=== PATIENT | female | born 1950 | race Caucasian/White ===

== ENCOUNTER 2022-11-20 15:40 | Emergency (ER) | payer MEDICARE, SELFPAY ==
[2022-11-20] MEDS: ASPIRIN 81 MG CHEWABLE TABLET 324 MG PO (15:40)
--- NOTE | 2022-11-20 15:47 | ED.CHESTPAIN ---
HPI - Chest Pain General Chief Complaint: Chest Pain Stated Complaint: Chest Pain/Shortness of Breath Source: patient and RN notes reviewed History of Present Illness HPI narrative: 72 yo female presents to urgent care with complaints of chest pain, back pain, and SOB. Pt states she thought she was having acid reflux initially but the pain worsened and is now in her left upper chest. Pt reports stabbing back pain and shortness of breath. Patient states this started prior to arrival. Patient denies any recent illness including fevers, vomiting, diarrhea, dizziness, congestion, or abdominal pain. Related Data Home Medications Medication Instructions Recorded Confirmed multivit with minerals-iron 18 1 tablet PO DAILY 07/29/19 11/20/22 mg-folic ac 400 mcg-vit K 25 mcg tablet (Adults Multivitamin) omega 1-ykp-whj-fish oil 1,000 mg 1 cap PO DAILY 07/29/19 11/20/22 (120 mg-180 mg) capsule (Fish Oil) docusate sodium 100 mg capsule 100 mg PO TID 06/17/22 11/20/22 (Stool Softener) magnesium oxide 400 mg PO DAILY 06/17/22 11/20/22 riboflavin (vitamin B2) 400 mg 400 mg PO DAILY 06/17/22 11/20/22 tablet Allergies Allergy/AdvReac Type Severity Reaction Status Date / Time latex AdvReac Unknown Unknown Unverified 11/20/22 15:50 Penicillins AdvReac Unknown Swelling Unverified 11/20/22 15:50 vicoden AdvReac Unknown Itching Uncoded 11/20/22 15:50 Review of Systems Review of Systems: Pertinent positives and pertinent negatives per HPI. [facility] Past Medical History Medical History (Updated 11/20/22 @ 16:13 by Qing Munoz APRN) Chronic cardiac arrhythmia Diabetes Hyperlipidemia Hypothyroid Surgical History Surgical History (Updated 06/13/22 @ 07:57 by Royal Kumar MD) Hx of cholecystectomy (2002) Hx of hysterectomy (02/2017) Social History Social History (Updated 06/19/22 @ 10:49 by Royal Kumar MD) Years smoked: 30 Smoking status: Former smoker Smoking end date: 08/17/11 Alcohol intake: current Comments At the time of my signature, I reviewed and agree with the nursing past medical, surgical, social, and family history. There is no relevant family history pertinent to the patient complaint. Exam Narrative: GENERAL: This is a well-nourished, well-developed patient, in no apparent distress. HEAD: normocephalic, atraumatic. EYES: Sclera clear/white. Vision is grossly intact. EARS: External ears normal, auditory canals clear and without drainage. Hearing grossly intact. NOSE: External nose normal with no obvious nasal discharge, nares without redness, no rhinorrhea. THROAT: Mucous membranes moist, posterior pharynx clear. NECK: Neck supple, non-tender without lymphadenopathy, masses or thyromegaly. CARDIOVASCULAR: Regular rate and rhythm without murmurs, gallops, or rubs. RESPIRATORY: Clear to auscultation. Breath sounds equal bilaterally. No wheezes, rales, or rhonchi. GASTROINTESTINAL: Abdomen soft, non-tender, nondistended. Bowel sounds are active. No hepato-splenomegaly, or palpable masses. No guarding. SKIN: warm, intact with no suspicious lesions or rash, good texture and turgor. NEURO: awake, alert, and oriented to person, place and time. There were no obvious focal neurologic abnormalities. Course Course Level of Care: Express Care Visit Vital Signs Vital signs: Vital Signs Temperature 98.5 F 11/20/22 15:51 Pulse Rate 94 11/20/22 15:51 Respiratory Rate 18 11/20/22 15:51 Blood Pressure 154/80 H 11/20/22 15:51 Pulse Oximetry 98 11/20/22 15:51 Oxygen Delivery Room Air 11/20/22 15:51 Temperature 98.5 F 11/20/22 15:56 Pulse Rate 94 11/20/22 15:56 Respiratory Rate 18 11/20/22 15:56 Blood Pressure 154/80 H 11/20/22 15:56 Pulse Oximetry 98 11/20/22 15:56 Oxygen Delivery Room Air 11/20/22 15:56 Reviewed MDM - Chest Pain MDM Narrative Medical decision making narrative: Patient was made aware reasons for transfer to ED,
[2022-11-20 15:51] VITALS: BP 154/80; PULSE 94; RESP 18; TEMP 36.9; O2SAT 98
[2022-11-20 15:56] VITALS: BP 154/80; PULSE 94; RESP 18; TEMP 36.9; O2SAT 98
--- NOTE | 2022-11-20 18:02 | ECG_ITS ---
Measurements Intervals [place] Rate: 91 P: 22 NC: 160 QRS: 51 QRSD: 104 T: 53 QT: 348 QTc: 430 Interpretive Statements SINUS RHYTHM NONSPECIFIC ST & T-WAVE ABNORMALITY ABNORMAL ECG INTERPRETATION BASED ON A DEFAULT AGE OF 40 YEARS NO PREVIOUS ECG AVAILABLE FOR COMPARISON Electronically Signed On 11-21-2022 7:41:47 CDT by Stephane Robb M.D.
== END 2022-11-20 16:00 | disposition left against medical advice (07) ==
PROVIDERS: Emergency Provider Nurse Practitioner Family
DX: R07.9 Chest pain, unspecified (principal); R94.31 Abnormal electrocardiogram [ECG] [EKG]; Z87.891 Personal history of nicotine dependence; E11.9 Type 2 diabetes mellitus without complications; E78.5 Hyperlipidemia, unspecified; E03.9 Hypothyroidism, unspecified; I49.9 Cardiac arrhythmia, unspecified
CPT/HCPCS: 93005; 99213; A9270; G0463

== ENCOUNTER 2024-07-26 00:31 | Day surgery (SDC) | payer MEDICARE, SELFPAY ==
[2024-07-05 13:57] VITALS: BMI 25.9
[2024-07-26 06:37] LABS: Glucose Point of Care 110 mg/dl (65-105)
--- NOTE | 2024-07-26 07:18 | P.PNAN_ITS ---
Anes - Initial Pre Proc Eval Procedure: Operation Date: 07/26/24 07:30 Proposed Procedures p Screening Colonoscopy - Cory Marie DO Date/Time: 07/26/24 07:18 Surgeon: Cory Marie DO Pre Op Diagnosis: Screening for malignant neoplasm of colon Patient Data Age: 74 Gender: F Height: 1.7 m Weight: 75 kg Allergies Allergy/AdvReac Type Severity Reaction Status Date / Time latex AdvReac Unknown Unknown Verified 07/26/24 07:07 Penicillins AdvReac Unknown Swelling Verified 07/26/24 07:07 vicoden AdvReac Unknown Itching Uncoded 07/26/24 07:07 Home Medications ?Medication ?Instructions ?Recorded ?Confirmed ?Type multivit with minerals-iron 18 1 tablet PO DAILY 07/29/19 07/26/24 History mg-folic ac 400 mcg-vit K 25 mcg tablet (Adults Multivitamin) omega 4-atp-dni-fish oil 1,000 mg 1 cap PO DAILY 07/29/19 07/26/24 History (120 mg-180 mg) capsule (Fish Oil) atorvastatin 20 mg tablet 20 mg PO DAILY #90 tabs 06/29/23 07/26/24 Rx digoxin 125 mcg (0.125 mg) tablet 0.375 mg (3 x 125 mcg (0.125 mg)) 06/29/23 07/26/24 Rx PO DAILY #270 tabs furosemide 20 mg tablet 20 mg PO DAILY PRN edema #90 tabs 06/29/23 07/26/24 Rx levothyroxine 100 mcg tablet 100 mcg PO DAILY #90 tabs 06/29/23 07/26/24 Rx metformin 500 mg tablet,extended 500 mg PO DAILY #90 tabs 06/29/23 07/26/24 Rx release 24 hr pantoprazole 40 mg tablet,delayed 40 mg PO DAILY #90 tabs 06/29/23 07/26/24 Rx release linaclotide 145 mcg capsule 145 mcg PO DAILY #30 caps 01/01/24 07/26/24 Rx (Linzess) nortriptyline 25 mg capsule 25 mg PO QHS #90 caps 05/29/24 07/26/24 Rx glucosamine-chondroitin 250 mg-200 2 tablet PO TID 07/04/24 07/26/24 History mg tablet (Osteo Bi-Flex) magnesium gluconate 30 mg (550 mg) 30 mg PO DAILY 07/04/24 07/26/24 History tablet bupropion HCl 150 mg 24 hr tablet, 150 mg PO QAM #90 tabs 07/06/24 07/26/24 Rx extended release Laboratory Tests 07/26/24 06:35 POC Capillary Glucose 110 H mg/dl (65-105) Patient hx anesthesia problems: none Family hx anesthesia problems: none Results Review: All pre-operative results and documents have been reviewed as part of the pre- operative evaluation. PMFSH Past Medical History Medical History Chronic cardiac arrhythmia Hypothyroid Diabetes Hyperlipidemia Surgical History Surgical History Hx of cholecystectomy (2002) Hx of hysterectomy (02/2017) Social History Social History Smoking packs per day: 1 Smoking cigarettes per day: 20.0 Years smoked: 40 Smoking pack-years: 40.00 Smoking status: Former smoker Tobacco type: cigarettes Smoking end date: 08/17/11 Alcohol intake: never Substance use: current Substance use type: does not use Do You Feel Safe in your Home?: Yes Lack of Transportation: No Lack of Food: Never True Current Housing: I Have Housing Concerned About Future Housing: No Difficulty Paying Gas/Electric Bills: No Difficulty Paying for Meds: No Currently Unemployed: No Education: Master's Degree or Higher Difficulty w/ Childcare or Family Care: No Living arrangements: alone Spiritual care concerns: No Anes - Eval Final PreProcedure Day of Procedure 07/26/24 07:18 Patient weight: normal Heart: regular rate and rhythm Lungs: clear to auscultation Airway: Mallampati scale class II Neurological: alert and oriented Last oral intake: >/= 8 hours ASA classification: III Emergent: no Anesthetic plan: proceed Anesthesia type and monitoring: general GIVS and standard monitoring Results Review: All pre-operative results and documents have been reviewed as part of the pre- operative evaluation. Informed Consent: The patient's anesthetic plan and its attendant risks and benefits were discussed with the patient/family/POA. Questions were solicited and answers provided to the satisfaction of the patient/family/POA.
[2024-07-26 07:19] VITALS: BP 139/79; PULSE 84; RESP 18; TEMP 36.2; O2SAT 98
[2024-07-26] MEDS: LACTATED RINGERS 1,000 ML 150 ML IV CONT (07:24)
--- NOTE | 2024-07-26 07:30 | PM.IMHP ---
H&P: HPI History of Present Illness Date/Time: 07/26/24 07:30 Chief Complaint: Screening for colorectal cancer Narrative: this is a 74-year-old woman who presents for colonoscopy. Her last colonoscopy was 5 years ago. She denies hematochezia or melena. She denies family history of colon cancer. Review of Systems Review of Systems: All systems reviewed & are unremarkable except as noted in HPI and below Constitutional: Constitutional: Denies chills, Denies fever(s), Denies headache(s) and Denies weight loss Eyes: Eyes: Denies change in vision ENT: Denies dizziness, Denies headache(s), Denies neck mass and Denies throat swelling Cardiovascular: Cardiovascular: Denies chest pain, Denies lightheadedness and Denies dyspnea Respiratory: Respiratory: Denies cough, Denies dyspnea and Denies wheezing Gastrointestinal: Gastrointestinal: Denies abdominal pain, Denies change in bowel habits, Denies nausea and Denies vomiting Genitourinary: Genitourinary: Denies hematuria and Denies dysuria Musculoskeletal: Musculoskeletal: Reports as per HPI Integumentary/Breasts: Skin/Breast: Reports as per HPI Neurologic: Denies dizziness and Denies headache(s) Allergic/Immunologic: Allergic/Immunologic: Denies throat swelling and Denies wheezing PMF Past Medical History Medical History Chronic cardiac arrhythmia Hypothyroid Diabetes Hyperlipidemia Surgical History Surgical History Hx of cholecystectomy (2002) Hx of hysterectomy (02/2017) Social History Social History Smoking packs per day: 1 Smoking cigarettes per day: 20.0 Years smoked: 40 Smoking pack-years: 40.00 Smoking status: Former smoker Tobacco type: cigarettes Smoking end date: 08/17/11 Alcohol intake: never Substance use: current Substance use type: does not use Do You Feel Safe in your Home?: Yes Lack of Transportation: No Lack of Food: Never True Current Housing: I Have Housing Concerned About Future Housing: No Difficulty Paying Gas/Electric Bills: No Difficulty Paying for Meds: No Currently Unemployed: No Education: Master's Degree or Higher Difficulty w/ Childcare or Family Care: No Living arrangements: alone Spiritual care concerns: No Meds Home Medications and Allergies Home Medications ?Medication ?Instructions ?Recorded ?Confirmed ?Type multivit with minerals-iron 18 1 tablet PO DAILY 07/29/19 07/26/24 History mg-folic ac 400 mcg-vit K 25 mcg tablet (Adults Multivitamin) omega 4-zdz-dsd-fish oil 1,000 mg 1 cap PO DAILY 07/29/19 07/26/24 History (120 mg-180 mg) capsule (Fish Oil) atorvastatin 20 mg tablet 20 mg PO DAILY #90 tabs 06/29/23 07/26/24 Rx digoxin 125 mcg (0.125 mg) tablet 0.375 mg (3 x 125 mcg (0.125 mg)) 06/29/23 07/26/24 Rx PO DAILY #270 tabs furosemide 20 mg tablet 20 mg PO DAILY PRN edema #90 tabs 06/29/23 07/26/24 Rx levothyroxine 100 mcg tablet 100 mcg PO DAILY #90 tabs 06/29/23 07/26/24 Rx metformin 500 mg tablet,extended 500 mg PO DAILY #90 tabs 06/29/23 07/26/24 Rx release 24 hr pantoprazole 40 mg tablet,delayed 40 mg PO DAILY #90 tabs 06/29/23 07/26/24 Rx release linaclotide 145 mcg capsule 145 mcg PO DAILY #30 caps 01/01/24 07/26/24 Rx (Linzess) nortriptyline 25 mg capsule 25 mg PO QHS #90 caps 05/29/24 07/26/24 Rx glucosamine-chondroitin 250 mg-200 2 tablet PO TID 07/04/24 07/26/24 History mg tablet (Osteo Bi-Flex) magnesium gluconate 30 mg (550 mg) 30 mg PO DAILY 07/04/24 07/26/24 History tablet bupropion HCl 150 mg 24 hr tablet, 150 mg PO QAM #90 tabs 07/06/24 07/26/24 Rx extended release Allergies Allergy/AdvReac Type Severity Reaction Status Date / Time latex AdvReac Unknown Unknown Verified 07/26/24 07:07 Penicillins AdvReac Unknown Swelling Verified 07/26/24 07:07 vicoden AdvReac Unknown Itching Uncoded 07/26/24 07:07 Vital Signs Vital Signs - 24 hr 07/26/24 07:19 Temperature 97.1 F L Pulse Rate 84 Respiratory Rate 18 Blood Pressure 139/79 Pulse Oximetry 98 Oxygen Delivery Room Air Exam Const: General: no acute distress and alert Orientation/consciousness: patient oriented x3 HENMT: Head: normocephalic and atraumatic Ears: hearing grossly normal bilaterally Face/Nose/Sinus: Normal nares present Mouth: Yes Normal oral and palatal mucosa present Eyes: Periorbital: periorbital findings normal Sclera: sclerae normal EOM: EOMs intact bilaterally Neck: Neck: normal visual inspection, no lymphadenopathy and trachea midline Chest: Chest palpation & inspection: normal inspection of the chest Resp: Effort & Inspection: normal respiratory effort Auscultation: clear to auscultation bilaterally Cardio: Jugular venous distension: no JVD Rate: regular rate Rhythm: regular rhythm Heart sounds: S1 normal heart sound present and S2 normal heart sound present Peripheral pulses: Peripheral pulses 2+ throughout GI: Inspection: normal to inspection GI Palp: Yes Soft to palpation, No Tenderness to palpation present (GI), No Guarding due to palpation present (GI) and No Rebound tenderness present Percussion: Yes normal to percussion Auscultation: normal bowel sounds : General: Yes no CVA tenderness Back/Spine/Pelvis: Back: no CVA tenderness Neuro: General: patient oriented x3, no focal motor deficits and CN's II-XI intact bilaterally Cognition (Neuro): normal cognition Speech: normal speech Motor exam (neuro): 5/5 motor strength present throughout Extrem: General: capillary refill normal and no clubbing, cyanosis or edema Assessment and Plan Assessment and plan (1) Screening for colorectal cancer: Code(s): Z12.11 - Encounter for screening for malignant neoplasm of colon; Z12.12 - Encounter for screening for malignant neoplasm of rectum Status: Acute Assessment and Plan: I have recommended colonoscopy. I have discussed the procedure, risks, benefits, and alternatives. Questions were answered. Patient is agreeable to proceed.
[2024-07-26 08:03] VITALS: BP 99/58; PULSE 68; RESP 22; O2SAT 97
[2024-07-26 08:13] VITALS: BP 114/64; PULSE 69; RESP 13; O2SAT 98
[2024-07-26 08:23] VITALS: BP 126/75; PULSE 73; RESP 18; O2SAT 99
== END 2024-07-26 08:41 | disposition home or self-care (01) ==
PROVIDERS: PCP Family Medicine Adolescent Medicine; Visit Provider Surgery
PROC: 0DJD8ZZ Inspection of Lower Intestinal Tract, Via Natural or Artificial Opening Endoscopic (ICD-10-PCS; CPT 45378; principal; 2024-07-26 07:30)
DX: Z12.11 Encounter for screening for malignant neoplasm of colon (principal); D12.8 Benign neoplasm of rectum; E03.9 Hypothyroidism, unspecified; E11.9 Type 2 diabetes mellitus without complications; E78.5 Hyperlipidemia, unspecified; I49.8 Other specified cardiac arrhythmias; Z79.84 Long term (current) use of oral hypoglycemic drugs; Z98.890 Other specified postprocedural states; Z90.49 Acquired absence of other specified parts of digestive tract; Z87.891 Personal history of nicotine dependence; Z80.0 Family history of malignant neoplasm of digestive organs
CPT/HCPCS: 45380; 82948; 88305; J2003; J2704; J7120

== ENCOUNTER 2024-11-03 09:45 | Outpatient (CLI) | payer MEDICARE, SELFPAY ==
--- NOTE | ~2024-11-03 | XR_ITS ---
Right Shoulder Technique: AP and scapular Y views were obtained. Clinical History: Enthesopathy Findings: No fracture or dislocation is seen. Osseous alignment is anatomic. The glenohumeral and acr omioclavicular joint spaces are preserved. Soft tissues are unremarkable. Impression: Unremarkable right shoulder radiographs. Reviewed, dictated and finalized at location . Impression: Unremarkable right shoulder radiographs.
--- NOTE | ~2024-11-03 | XR_ITS ---
Left Shoulder Technique: AP and scapular Y views were obtained. Clinical History: Arthritis Findings: No fracture or dislocation is seen. Osseous alignment is anatomic. The glenohumeral and acr omioclavicular joint spaces are preserved. Soft tissues are unremarkable. Impression: Unremarkable left shoulder radiographs. Reviewed, dictated and finalized at [facility]. Impression: Unremarkable left shoulder radiographs.
== END 2024-11-03 09:46 | disposition home or self-care (01) ==
LOC: MICIMG 09:47
PROVIDERS: PCP Family Medicine Adolescent Medicine; Visit Provider Family Medicine Adolescent Medicine
DX: M19.012 Primary osteoarthritis, left shoulder (principal); M77.8 Other enthesopathies, not elsewhere classified
CPT/HCPCS: 73030

== ENCOUNTER 2025-03-03 14:58 | Emergency (ER) | payer MEDICARE, SELFPAY ==
--- NOTE | 2025-03-03 15:01 | ED_ITS ---
HPI - URI/Sore Throat General Chief Complaint: Upper Respiratory Infection Stated Complaint: throat/aches/head congestion Time Seen by Provider: 03/03/25 15:21 Source: patient and RN notes reviewed Mode of arrival: ambulatory Limitations: no limitations History of Present Illness HPI Narrative: 74-year-old female presents with concern for sore throat, cough, sinus congestion and pressure, hoarseness. Reports symptoms started last night. She arrived home today from an [facility] cruise. She has not taken any medication for her symptoms. She has not taken her temperature. MD elicited complaint: cough and nasal congestion Related Data Home Medications ?Medication ?Instructions ?Recorded ?Confirmed ?Last Taken ?Type multivit with minerals-iron 18 1 tablet PO DAILY 07/29/19 11/03/24 07/25/24 History mg-folic ac 400 mcg-vit K 25 mcg tablet (Adults Multivitamin) omega 5-lpq-vse-fish oil 1,000 mg 1 cap PO DAILY 07/29/19 11/03/24 07/25/24 History (120 mg-180 mg) capsule (Fish Oil) glucosamine-chondroitin 250 mg-200 2 tablet PO TID 07/04/24 11/03/24 07/25/24 History mg tablet (Osteo Bi-Flex) magnesium gluconate 30 mg (550 mg) 30 mg PO DAILY 07/04/24 11/03/24 07/25/24 History tablet hydrocortisone sod succ (PF) 1,000 mg 03/03/25 Unknown History mg/8 mL solution for injection (Solu-Cortef Act-O-Vial (PF)) Allergies Allergy/AdvReac Type Severity Reaction Status Date / Time latex AdvReac Unknown Unknown Verified 03/03/25 15:12 Penicillins AdvReac Unknown Swelling Verified 03/03/25 15:12 vicoden AdvReac Unknown Itching Uncoded 03/03/25 15:12 Review of Systems Review of Systems: CONSTITUTIONAL: Reports malaise EYES: Denies visual changes, redness, or discharge. ENT: Reports rhinorrhea, congestion, sore throat. CARDIOVASCULAR: Denies chest pain, palpitations, or edema. RESPIRATORY: Reports cough. Denies dyspnea. GASTROINTESTINAL: Denies abdominal pain, nausea, vomiting, diarrhea SKIN: Denies rash or itching. MUSCULOSKELETAL: Denies myalgia. NEUROLOGIC: Reports headache. All systems reviewed & are unremarkable except as noted in HPI and below PMFSH Past Medical History Medical History Chronic cardiac arrhythmia Hypothyroid Diabetes Hyperlipidemia Surgical History Surgical History Hx of cholecystectomy (2002) Hx of hysterectomy (02/2017) Social History Social History Smoking packs per day: 1 Smoking cigarettes per day: 20.0 Years smoked: 40 Smoking pack-years: 40.00 Smoking status: Former smoker Tobacco type: cigarettes Smoking end date: 08/17/11 Alcohol intake: never Substance use: current Substance use type: does not use Do You Feel Safe in your Home?: Yes Lack of Transportation: No Lack of Food: Never True Current Housing: I Have Housing Concerned About Future Housing: No Difficulty Paying Gas/Electric Bills: No Difficulty Paying for Meds: No Currently Unemployed: No Education: Master's Degree or Higher Difficulty w/ Childcare or Family Care: No Living arrangements: alone Spiritual care concerns: No Comments At time of signature, agree with nursing past medical, surgical, social and family history. There is no relevant family history pertinent to the presenting complaint Exam Narrative: GENERAL: Nontoxic-appearing, well-nourished, and in no acute distress. HEAD: Normocephalic EYES: PERRLA, conjunctivae clear ENT: Nares clear. Mucous membranes moist. TM pearly ramirez with sharp light reflex bilaterally; no tragal tenderness. Oropharynx not erythematous without lesions. Tonsils not enlarged and without exudate, no drooling, no hoarseness, no trismus, uvula midline. NECK: Supple. No lymphadenopathy CHEST: Clear to auscultation, breath sounds equal. No wheezing, rhonchi, rales, or stridor. No respiratory distress, speaks in full sentences. HEART: Regular rate and rhythm. No murmur heard. SKIN: Warm, dry, no rash. NEURO: Alert and oriented x3. PSYCH: Normal mood and affect Course Course Emergency Course: Patient is aware of diagnosis, understands and agrees to treatment plan. Anticipatory guidance given. Patient agrees to follow-up as directed and is aware of reasons to seek care at the emergency department. Portions of this record may have been created with voice recognition software Level of Care: Express Care Visit Vital Signs Vital signs: Reviewed. MDM - URI/Sore Throat MDM Narrative Medical decision making narrative: Differential diagnosis considered: Macias virus, strep pharyngitis, allergic rhinitis, upper respiratory tract infection, sinusitis, rhinosinusitis, nasopharyngitis. viral pharyngitis, otitis media, otitis externa, pneumonia, br onchitis, viral cough syndrome, viral syndrome, and influenza. Exam findings show no acute concerns or changes; patient is non-toxic appearing and is in no distress. Patient is appropriate for outpatient treatment and follow-up. Lab Data Attestation: I reviewed the patient's lab results. Critical Care Time Critical Care Time Critical Care Time: No Discharge Plan Discharge Clinical Impression: COVID Patient Disposition: Home Condition: Stable Instructions: How to Recover from COVID-19 at Home (ED) Additional Instructions: Your rapid COVID test is positive. COVID is a virus, antibiotics are not effective against viruses. Your body has to kill viruses. ? Stay home when you are sick, except to get medical care. ? Stay home until your symptoms are resolving and you haven't had a fever for 24 hours. ? If you are self isolating at home where others live, use a separate room and bathroom for sick household members (if possible). Clean any shared rooms as ne eded, to avoid transmitting the virus. ? Wash your hands often with soap and water for at least 20 seconds, especially after blowing your nose, coughing, or sneezing; going to the bathroom; and befor e eating or preparing food. ? If soap and water are not available, use an alcohol-based hand direct marketing intern with at least 60% alcohol. ? Have a supply of clean, disposable face masks. Everyone, no matter their COVID diagnosis, should wear face masks while in the home. - Over the counter medications such as Tylenol every 4 hours, ibuprofen every 6 hours (you can alternate these for maximum effect), Mucinex DM for cough, and psuedoephedrine (you must ask the pharmacist for this) can help relieve symptoms while your body fights off the virus. Watch for symptoms and learn when to seek emergency medical attention. If someone is showing any of these signs, seek emergency medical care immediately: ? Trouble breathing ? Persistent chest pain/pressure ? Confusion ? Inability to wake or stay awake ? Bluish lips or face Call 911 or call ahead to your local emergency room: Notify the utility operator that you are seeking care for someone who has or may have COVID Patient Language: Dominican Prescriptions: New Paxlovid 300 mg (150 mg x 2)-100 mg tablet See Rx Instructions .ROUTE .COMPLEX Qty: 30 0RF Rx Instructions: take TWO 150 mg tablets of nirmatrelvir with ONE 100 mg tablet of ritonavir twice daily for 5 days pseudoephedrine HCl [12 Hour Decongestant] 120 mg tablet extended release 120 mg PO Q12H PRN (Reason: nasal congestion) Qty: 20 0RF Held trazodone 100 mg tablet 100 mg PO QHS Qty: 30 5RF Hold Instructions: Resume on 03/09/25. Do not take while taking paxlovid atorvastatin 20 mg tablet 20 mg PO DAILY Qty: 90 2RF Hold Instructions: Resume on 03/09/25. Do not take while taking Paxlovid No Action Solu-Cortef Act-O-Vial (PF) 1,000 mg/8 mL recon soln glucosamine-chondroitin [Osteo Bi-Flex] 250-200 mg tablet 2 tablet PO TID Rx Instructions: give after food/meal magnesium gluconate 30 mg (550 mg) tablet 30 mg PO DAILY furosemide 20 mg tablet 20 mg PO DAILY PRN (Reason: edema) Qty: 90 3RF omega 1-eam-lsu-fish oil [Fish Oil] 1,000 mg (120 mg-180 mg) Capsule 1 cap PO DAILY Adults Multivitamin 18 mg iron-400 mcg-25 mcg Tablet 1 tablet PO DAILY nortriptyline 25 mg capsule 25 mg PO QHS Qty: 90 3RF bupropion HCl 150 mg tablet extended release 24 hr 150 mg PO QAM Qty: 90 3RF digoxin 125 mcg (0.125 mg) tablet 0.375 mg PO DAILY Qty: 270 2RF pantoprazole 40 mg tablet,delayed release (DR/EC) 40 mg PO DAILY Qty: 90 2RF Linzess 145 mcg capsule 145 mcg PO DAILY Qty: 30 7RF levothyroxine 100 mcg tablet See Rx Instructions .ROUTE .COMPLEX Qty: 90 3RF Dose Instruction: Take 1 tablet by mouth once daily Rx Instructions: Take 1 tablet by mouth once daily metformin 500 mg tablet extended release 24 hr See Rx Instructions .ROUTE .COMPLEX Qty: 90 2RF Dose Instruction: Take 1 tablet by mouth once daily Rx Instructions: Take 1 tablet by mouth once daily Follow-up/Referrals: Royal Kumar MD [Primary Care Provider] - Time of Disposition: 15:30
--- OUTSIDE RECORDS SUMMARY | 2025-03-03 15:02 | XMS_ITS ---
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 Stephane Navarro Unavailable [phone] Gina Santiago Unavailable [phone] Allergies Allergen (clinical drug ingredient) Drug/Non Drug Allergy documented on EMR Reaction Allergy Type Onset Date Status Penicillin G Benzathine other reaction Drug Allergy Active REASON FOR VISIT Botox BB Only Medications Medication SIG (Take, Route, Frequency, Duration) Notes Start Date End Date Status Levothyroxine Sodium 100 MCG (0.1 MG) 1 CAP(S) ORALLY ONCE A DAY *Please review and pick correct strength-formulati on from AdRollan options. If intended option is not shown, discontinue and re-order from Quick Search* Active Nortriptyline HCl 25 MG 1 cap(s) orally 3 times a day Active metFORMIN HCl ER 500 MG 1 tab(s) orally once a day Active Atorvastatin Calcium 20 MG 1 tab(s) orally once a day Active Digoxin 62.5 MCG (0.0625 MG) 1 TAB(S) ORALLY ONCE A DAY *Please review and pick correct strength-formulati on from Medispan options. If intended option is not shown, discontinue and re-order from Quick Search* Active Pantoprazole Sodium 40 MG 1 tab(s) orally once a day Active Clindamycin HCl 300 MG 1 cap(s) orally every 6 hours Active Prochlorperazine Maleate 10 MG 1 tab(s) orally 3 times a day Active Furosemide 20 MG 1 tab(s) orally once a day Active Wellbutrin SR 150 MG 1 tab(s) orally 2 times a day Active NORTRIPTYLINE 25 mg 1 cap(s) orally 3 times a day Active METFORMIN 500 mg 1 tab(s) orally once a day Active ATORVASTATIN 20 mg 1 tab(s) orally once a day Active DIGOXIN 62.5 mcg (0.0625 mg) 1 tab(s) orally once a day .375mg Active Linzess 145 MCG 1 cap(s) orally once a day Active LEVOTHYROXINE 100 mcg (0.1 mg) 1 cap(s) orally once a day Active CLINDAMYCIN 300 mg 1 cap(s) orally every 6 hours Active PROCHLORPERAZINE 10 mg 1 tab(s) orally 3 times a day As needed Active FUROSEMIDE 20 mg 1 tab(s) orally once a day Active WELLBUTRIN SR 150 mg/12 hours 1 tab(s) orally 2 times a day Active PANTOPRAZOLE 40 mg 1 tab(s) orally once a day Active LINZESS 145 mcg 1 cap(s) orally once a day Active Social History Tobacco Use: Social History Observation Description Date Details (start date - stop date) Former Smoker NA - NA Smoking Smart Form: Question Answer Notes Are you a: former smoker Additional Findings:Tobacco Non-User Ex-light ci garette smoker (1-9/day) Problems Problem Type SNOMED Code ICD Code Onset Dates Problem Status W/U Status Risk Notes Problem Migraine with aura (2553008) Migraine with aura, not intractable, without status migrainosus (G43.109) Active confirmed Problem Chronic migraine without aura, non-refractor y (disorder) (123207407206 100) Migraine without aura, not intractable, without status migrainosus (G43.009) Active confirmed Encounters Encounter Location Date Provider Diagnosis [facility] [address] [address] 09/01/2024 Gina Santiago Chronic migraine without aura, not intractable, without status migrainosus G43.709 Assessments Encounter Date Diagnosis (ICD Code) Assessment Notes Treatment Notes Treatment Clinical Notes Section Notes 09/01/2024 Chronic migraine without aura, not intractable, without status migrainosus (ICD-10 - G43.709) Plan Of Treatment Next Appt Details Follow Up: 3 Months, Reason: Evaluation and Management. Toxin injection Provider Name:Gina delgado, 04/06/2025 10:20:00 AM[facility] [address] [facility] [address], [place], [address], Progress Notes * SHIRABALBINABreana BERGERONDelmiB:06[birth year]12 (74 yo F)Acc No.[id number]:09/01/2024 Progress Notes Patient: Fay LEE Provider: Marcy Santiago APRN :1950 A ge:74 Y S ex:Female Date:09/01/2024 Address:[address] [place], [place] [id number] Pcp:Royal Mora Subjective: * Chief Complaints: * 1 . Botox BB Only. * HPI: * Introduction: HPI: Karen Tamez, who presented for Botox. * Initial History: INITIAL VISIT HISTORY: She is a 73 year old woman with a history of chronic migraine, hypothyroidism, DM2, HLD, CHF. She was previously under the care of Dr. Em at [facility], but Dr. Em moved out of [facility]. She is on Botox for migraine prevention and needs to stay on this treatment because it has been effective for her. Her last injection was done on 07/30/[address] Em. Headache History: -Headache Onset: Started in adulthood-Headache Description: Aura: None. Headache phase: Typically bilateral retroorbital and frontal, has difficulty describing the quality of the pain, can be associated with nausea, improved by sleep, no associated photosensitivity, can up to 1/2 day or longer. -Headache Triggers: Weather changes (barometric pressure change), seasonal allergies -Headache Frequency: The patient is currently experiencing only 1 Migraine days/month;depends upon weather and seasonal allergies; she gets more frequent tension-type headaches without migrainous features up to 2-3 days/week (8-12 days/month). Prior to treatment with Botox, the patient had 20 migraine days/month. * Previous Impression & Plan: Notes P revious Diagnoses: 1 . Chronic migraine without aura, not intractable, without status migrainosus - G43.709 (Primary) P revious Recommendations: 1 . Abortive: Prochlorperazine + Ibuprofen. Preventive: Botox. Needs PA. Patient meets criteria for chronic migraine with > 15 headache days/month and > 8 migraine days per month, and has failed > 2 standard preventives and is therefore a good candidate for botulinum toxin. * Interval History: Notes P harmacologic Treatment: C urrent abortive treatment: P rochlorperazine 10 mg + Ibuprofen P revious abortive treatment: N one C urrent preventive treatment: B otox.?She is also on Nortriptyline (she was given this for spine pain; has not helped her headaches, also helps her sleep). P revious preventive treatment: A mitriptyline (ineffective, took for > 2 months, more than a year ago), Propranolol (ineffective, took for > 2 months, few years) M edication overuse: Not present O ther modalities: Chiropractic, Physical Therapy H eadache Frequency: I nitial/baseline headache/migraine days/month:20 L ast visit headache/migraine days/month: 1-4 C urrent headache/migraine days/month: / I nterval History: L ast visit was on 05/26/2024 for Botox injection.. * Headache: Last injection on 05/26/24: Procerus 5 Units, Sustainability Coach (Left) 5 Units, Sustainability Coach (Right) 5 Units, Frontalis (Left) 12.5 Units, Frontalis (Right) 12.5 Units, Temporalis (Left) 30 Units, Temporalis (Right) 30 Units, Occipitalis (Left) 25 Units, Occipitalis (Right) 25 Units, Cervical Paraspinal (Left) 10 Units, Cervical Paraspinal (Right) 10 Units, Trapezius (Left) 15 Units, Trapezius (Right) 15 Units. * ROS: A LLERGY: sinus congestion Y es. D enies all N o. ? C ONSTITUTIONAL: night sweats N o. w eight gain N o. l oss of appetite N o. f ever N o. w eakness N o. w eight loss N o. f atigue?No. E NT: cold N o. c ough N o. e pistaxis N o. h earing loss N o. c hange in voice N o. s ore throat N o. r inging in ears?Yes. s inus pain Y es. R ESPIRATORY: shortness of breath Y es. c hest pain N o. c hest congestion N o. c ough N o. O PHTHALMOLOGY: itching N o. s ensitivity to light N o. s welling of the eyelids N o. r edness N o. d iminished vision Y es. e ye irritation Y es. d rainage from eyes N o. b lurring of vision N o. s easonal eye sx?No. l oss of vision N o. E NDOCRINOLOGY: fatigue N o. p olydipsia N o. p olyuria N o. w eight loss N o. s leep disturbance N o. c old intolerance N o. h eat intolerance N o. d iabetes Y es. C ARDIOLOGY: dizziness N o. c hest pain N o. p alpitations?No. l eg edema N o. s hortness of breath N o. G ASTROENTEROLOGY: nausea N o. i ndigestion Y es. h emorrhoids?Yes. v omiting N o. d ysphagia N o. a bdominal pain Y es. d iarrhea?No. c onstipation Y es. b lood in stool N o. U ROLOGY: difficulty urinating N o. b lood in urine N o. f requent urination N o. u rinary incontinence Y es. v oiding dysfunction N o.?recurrent UTI N o. D ERMATOLOGY: rash N o. m ole N o. l umps N o. d ry or sensitive skin Y es. h nellie (urticaria) N o. a cne N o. s kin cancer N o. N EUROLOGY: syncope Y es. h eadache Y es. t ingling numbness Y es. s eizures N o. i nsomnia Y es. m mauro loss N o. d izziness?Yes. g ait abnormality N o. H EMATOLOGY/LYMPH: Positive for n one. M USCULOSKELETAL: gout N o. j oint stiffness Y es. l eg cramps?No. j oint pain Y es. j oint swelling N o. s ciatica Y es. o steoporosis N o. f racture N o. c arpal tunnel N o. P SYCHOLOGY: depression Y es. s uicidal ideation N o. e ating disorder Y es. m ental or physical abuse N o. a nxiety N o. * Medical History: M igraine, Hypothyroidism, HLD, Cataracts, GERD, Depression, Prediabetic, SVT, Cervical DDD. * Surgical History: C orneal transplant , Cervical disc replacements , Hysterectomy , Bladder suspension , CCK . * Family History: F ather: No. M other: No. P aternal Grand Father: No. P aternal Grand Mother: No.?Maternal Grand Father: No. M aternal Grand Mother: No. P aternal uncle: No. P aternal aunt: No. M aternal uncle: No. M aternal aunt: No. S iblings: Yes. Karen carreon: Yes. She is not aware of a family history of migraine. * Social History: M arital Status What is your marital status? d ivorced A lcohol Screening Do you ever drink alcoholic beverages? N o C affeine: No. S moking Smart Form Are you a: f ormer smoker Additional Findings:Tobacco Non-User E x-light cigarette smoker (1-9/day) E xercise What kind(s) of exercise do you perform regularly? w alking How often do you perform this exercise? d aily O ccupation Are you currenly employed? N o Have you had any job with high exposure to fumes, chemicals, dust or other noxious substances? N o Are you currently a student? N o * Medications: T aking LINZESS 145 mcg capsule 1 cap(s) orally once a day , Taking PANTOPRAZOLE 40 mg delayed release tablet 1 tab(s) orally once a day , Taking PROCHLORPERAZINE 10 mg tablet 1 tab(s) orally 3 times a day As needed, Taking CLINDAMYCIN 300 mg capsule 1 cap(s) orally every 6 hours , Taking WELLBUTRIN SR 150 mg/12 hours tablet, extended release 1 tab(s) orally 2 times a day , Taking FUROSEMIDE 20 mg tablet 1 tab(s) orally once a day , Taking LEVOTHYROXINE 100 mcg (0.1 mg) capsule 1 cap(s) orally once a day , Taking METFORMIN 500 mg tablet, extended release 1 tab(s) orally once a day , Taking NORTRIPTYLINE 25 mg capsule 1 cap(s) orally 3 times a day , Taking DIGOXIN 62.5 mcg (0.0625 mg) tablet 1 tab(s) orally once a day .375mg, Taking ATORVASTATIN 20 mg tablet 1 tab(s) orally once a day , Taking Linzess 145 MCG Capsule 1 cap(s) orally once a day , Taking Pantoprazole Sodium 40 MG Tablet Delayed Release 1 tab(s) orally once a day , Taking Prochlorperazine Maleate 10 MG Tablet 1 tab(s) orally 3 times a day , Taking Clindamycin HCl 300 MG Capsule 1 cap(s) orally every 6 hours , Taking Wellbutrin SR 150 MG Tablet Extended Release 12 Hour 1 tab(s) orally 2 times a day , Taking Furosemide 20 MG Tablet 1 tab(s) orally once a day , Taking Levothyroxine Sodium 100 MCG (0.1 MG) CAPSULE 1 CAP(S) ORALLY ONCE A DAY , Notes to Pharmacist: *Please review and pick correct strength-formulation from Myoonet options. If intended option is not shown, discontinue and re-order from Quick Search*, Taking metFORMIN HCl ER 500 MG Tablet Extended Release 24 Hour 1 tab(s) orally once a day , Taking Nortriptyline HCl 25 MG Capsule 1 cap(s) orally 3 times a day , Taking Digoxin 62.5 MCG (0.0625 MG) TABLET 1 TAB(S) ORALLY ONCE A DAY , Notes to Pharmacist: *Please review and pick correct strength-formulation from Myoonet options. If intended option is not shown, discontinue and re-order from Quick Search*, Taking Atorvastatin Calcium 20 MG Tablet 1 tab(s) orally once a day * Allergies: P enicillin G Benzathine: other reaction. Objective: * Vitals: * Examination: G eneral examination: General appearance: P leasant, well-developed, no distress.? HEENT: P upils equal, round and reactive to light. No conjunctival injection. No tenderness to palpation over the maxillary sinuses. No turbinate hypertrophy. Tympanic membranes appear normal. No oral lesions. No tenderness over the occipital notch bilaterally. Oral cavity: N ormal, no lesions. Neck, thyroid : S upple, non-tender, no anterior cervical lymphadenopathy. Breasts : N ot performed. Heart: R RR, S1-S2, no murmurs, no rubs, no gallops. Lungs: C lear to auscultation and percussion in all lung alvares. Abdomen: S oft, NT/ND, normal active bowel sounds. Neurologic exam: A lert and oriented x 4. Fluent speech. Intact recall, fund of knowledge. Appropriate affect. PERRL. EOMI without nystagmus. No visual field cut. Facial sensation intact to light touch and pinprick in bilateral V1/V2/V3. Facial movements normal and symmetric. Hearing intact to finger rub bilaterally. Palate symmetrically upgoing. Tongue midline. Motor 5/5 strength in all extremities. Reflexes 2+/2 and symmetric in all extremities. Bilateral flexor plantar responses. Sensory exam intact to light touch, pinprick, vibration, and proprioception in all extremities. Cerebellar testing no ataxia or dysmetria. Gait normal, negative Romberg, intact tandem. Skin: N ormal, no rash, urticaria, angioedema. Peripheral pulses: n ormal (2+) bilaterally. Back: N o cervical or periscapular trigger points. Normal cervical and lumbar ROM. Extremities: R estricted C-spine ROM, mild hypertonicity of cervical paraspinals and trapezius bilaterally. Genitalia: N ot performed. Assessment: * Assessment: 1. C hronic migraine without aura, not intractable, without status migrainosus - G43.709 (Primary) Plan: * Treatment: * Procedure Codes: 6 4615 CHEMODENERV MUSC MIGRAINE, J0585 BOTULINUM TOXIN TYPE A PER UNIT, J0585 BOTULINUM TOXIN TYPE A PER UNIT, Modifiers: JW , 93380 PT-FOCUSED HLTH RISK ASSMT, G8427 DOC MEDS VERIFIED W/PT OR RE, G2211 Complex e/m visit add on * Follow Up: 3 Months (Reason: Evaluation and Management. Toxin injection) * Billing Information: * Visit Code: 30104 Office Visit, Est Pt., Level 4. Modifiers: Office Visit, Est Pt., Level 3. Modifiers: Office Visit, Est Pt., Level 5. Modifiers: 25 * Procedure Codes: 04441 CHEMODENERV MUSC MIGRAINE. J0585 BOTULINUM TOXIN TYPE A PER UNIT. J0585 BOTULINUM TOXIN TYPE A PER UNIT. Modifiers: JW 13503 PT-FOCUSED HLTH RISK ASSMT. G8427 DOC MEDS VERIFIED W/PT OR RE. G2211 Complex e/m visit add on. * Electronic signature of NOLAN Keith-Karen on 03/03/2025 at 03:02 PM CDT Sign off status: Pending * Provider: Marcy Santiago, ALDO Date: 0 09/01/2024 Generated for Printi ng/Fadig/eTransmitting on: 0 03/03/2025 03:02 PM CDT History and Physical Notes * HPI (History of Present Illness) Category Sub-Category Detail Notes Category Not es *Introduction HPI: Fay Emory ramsay, who presented for Botox *Headache Last injection on 05/26/24: Procerus 5 Units, Sustainability Coach (Left) 5 Units, Sustainability Coach (Right) 5 Units, Frontalis (Left) 12.5 Units, Frontalis (Right) 12.5 Units, Temporalis (Left) 30 Units, Temporalis (Right) 30 Units, Occipitalis (Left) 25 Units, Occipitalis (Right) 25 Units, Cervical Paraspinal (Left) 10 Units, Cervical Paraspinal (Right) 10 Units, Trapezius (Left) 15 Units, Trapezius (Right) 15 Units *Initial History INITIAL VISIT HISTORY: She is a 73 year old woman with a history of chronic migraine, hypothyroidism, DM2, HLD, CHF. She was previously under the care of Dr. Em at [facility], but Dr. Em moved out of [facility]. She is on Botox for migraine prevention and needs to stay on this treatment because it has been effective for her. Her last injection was done on 07/30/[address] Em. Headache History: -Headache Onset: Started in adulthood-Headache Description: Aura: None. Headache phase: Typically bilateral retroorbital and frontal, has difficulty describing the quality of the pain, can be associated with nausea, improved by sleep, no associated photosensitivity, can up to 1/2 day or longer. -Headache Triggers: Weather changes (barometric pressure change), seasonal allergies -Headache Frequency: The patient is currently experiencing only 1 Migraine days/month;depends upon weather and seasonal allergies; she gets more frequent tension-type headaches without migrainous features up to 2-3 days/week (8-12 days/month). Prior to treatment with Botox, the patient had 20 migraine days/month *Previous Impression & Plan Notes Previous Diagnoses:1. Chroni c migraine without aura, not intractable, without status migrainosus - G43.709 (Primary)Previous Recommendations:1. Abortive: Prochlorperazine + Ibuprofen. Preventive: Botox. Needs PA. Patient meets criteria for chronic migraine with > 15 headache days/month and > 8 migraine days per month, and has failed > 2 standard preventives and is therefore a good candidate for botulinum toxin *Interval History Notes Pharmacologic Treatment:Current abortive treatment: Prochlorperazine 10 mg + IbuprofenPrevious abortive treatment: NoneCurrent preventive treatment: Botox. She is also on Nortriptyline (she was given this for spine pain; has not helped her headaches, also helps her sleep).Previous preventive treatment: Amitriptyline (ineffective, took for > 2 months, more than a year ago), Propranolol (ineffective, took for > 2 months, few years)Medication overuse: Not presentOther modalities: Chiropractic, Physical TherapyHeadache Frequency:Initial/baseline headache/migraine days/month: 20Last visit headache/migraine days/month: 1-4Current headache/migraine days/month: /Interval History:Last visit was on 05/26/2024 for Botox injection. Examination Category Sub-Category Detail Notes Category Not es General examination HEENT: Pupils equal , round and reactive to light. No conjunctival injection. No tenderness to palpation over the maxillary sinuses. No turbinate hypertrophy. Tympanic membranes appear normal. No oral lesions. No tenderness over the occipital notch bilaterally Neck, thyroid : Supple, non-tender, no anterior cervical lymphadenopathy Heart: RRR, S1-S2, no murmu rs, no rubs, no gallops Lungs: Clear to auscultatio n and percussion in all lung alvares Abdomen: Soft, NT/ND, normal active bowel sounds Extremities: Restricted C-spine R OM, mild hypertonicity of cervical paraspinals and trapezius bilaterally General appearance: Pleasant, well-devel oped, no distress Skin: Normal, no rash, urt icaria, angioedema Neurologic exam: Alert and oriented x 4. Fluent speech. Intact recall, fund of knowledge. Appropriate affect. PERRL. EOMI without nystagmus. No visual field cut. Facial sensation intact to light touch and pinprick in bilateral V1/V2/V3. Facial movements normal and symmetric. Hearing intact to finger rub bilaterally. Palate symmetrically upgoing. Tongue midline. Motor 5/5 strength in all extremities. Reflexes 2+/2 and symmetric in all extremities. Bilateral flexor plantar responses. Sensory exam intact to light touch, pinprick, vibration, and proprioception in all extremities. Cerebellar testing no ataxia or dysmetria. Gait normal, negative Romberg, intact tandem Oral cavity: Normal, no lesions Breasts : Not performed Peripheral pulses: normal (2+) bilatera lly Back: No cervical or peris capular trigger points. Normal cervical and lumbar ROM Genitalia: Not performed
--- OUTSIDE RECORDS SUMMARY | 2025-03-03 15:02 | XMS_ITS | Clinical Summary ---
Author Organization [facility] Address [address] [place] [address] Care Team Providers Care Theater Manager Name Role Phone Royal Kumar MD Primary Care Prov ider Allergies Active Allergy Reactions Criticality Noted Date Comments Niacin Blisters High 01/29/2021 Nicotine patch Penicillins Swelling Medium Black nails and extremity swelling Medications multivitamin (MULTI-DAY) tablet tablet take 1 tablet by oral route every day with food 0 0 5 Active levothyroxine sodium (TIROSINT) 100 mcg capsule take 1 capsule by oral route every day 0 0 5 Active Additional Information Patient taking differently:100 mcgoral Daily (early AM), Reported on 12/30/2024 nortriptyline (PAMELOR) 50 mg capsule Take 25 mg by mouth nightly 0 Active buPROPion XL (WELLBUTRIN XL) 150 mg 24 hr tablet Take 1 tablet (150 mg total) by mouth every morning 0 Active artificial tears,hypromell ose, 0.3 % drops Administer into affected eye(s) daily as needed Active acetaminophen (TYLENOL) 500 mg tablet Take 1 tablet (500 mg total) by mouth every 6 (six) hours as needed for pain Active ibuprofen (ADVIL,MOTRIN) 400 mg tablet Take 1 tablet (400 mg total) by mouth every 6 (six) hours as needed for pain Active atorvastatin (LIPITOR) 20 mg tablet Take 1 tablet (20 mg total) by mouth daily 1 Active furosemide (LASIX) 20 mg tablet Take 1 tablet (20 mg total) by mouth as needed Active metFORMIN (GLUCOPHAGE) 500 mg tablet Take 1 tablet (500 mg total) by mouth nightly Active vit D3/vit K2/olive leaf ext (OSTEOBLOX CF ORAL) Take 1,500 mg by mouth daily Active omega-3 fatty acids-fish oil 300-1,000 mg capsule Take 1 capsule (1 g total) by mouth daily Active riboflavin (Vitamin B-2) 100 mg tabletIndicatio ns:Riboflavin Deficiency 4 tablets (400 mg total) Active naproxen sodium 220 mg capsule Take 2 capsules by mouth 2 (two) times a day as needed Active clindamycin (CLEOCIN) 150 mg capsule TAKE 4 CAPSULES BY MOUTH 1 HOUR BEFORE APPOINTMENT [address] (PROTONIX) 40 mg EC tablet Take 1 tablet (40 mg total) by mouth daily 3 Active Linzess 145 mcg capsule Take 1 capsule (145 mcg total) by mouth daily 3 Active MAGNESIUM GLUCONATE ORAL Take by mouth A ctive prochlorperazin e (COMPAZINE) 10 mg tablet Take 1 tablet (10 mg total) by mouth 3 (three) times a day as needed for nausea 20 tablet 2 3 Active DIGOXIN ORAL Take 375 mcg by mouth daily Active moxifloxacin (VIGAMOX) 0.5 % ophthalmic solution Administer 1 drop into the right eye 3 (three) times a day Use 3x per day for 3 days after suture removal. 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 IOP good, VA stable PLAN: - PF HC daily OU - RTC 1 year Assessment & Plan (12/26/2021 12:04 PM CDT): Doing well. IOP good, VA stable PLAN: - PF HC daily OU - RTC 1 year Assessment & Plan (08/01/2021 12:23 PM LUMBER SORTER): Doing well 1 exposed/broken suture OD--> status post (s/p) removal PLAN: -TD TID x 3 days -Continue PF HC BID OD and daily OS RTC 4 months for refraction and K check Assessment & Plan (06/20/2021 3:49 PM CDT): Doing well, minimal astigmatism today, excellent BCVA. Recent local MRx. 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 -Significant injection of superior bulbar conj leading to healing corneoscleral incision -stop TD -cont PF OD 6x/day x 2wks, then 5x/day OS -Cont (PF) HC1% OS QD RTC 1 mo Assessment & Plan (02/07/2021 9:08 AM CDT): POV s/p DSEK/ant vit/IOL reposition under PKP OD attached 360, mild pigment at inferior edge of DSEK GHI and inferior edge of air bubble start TD and PF alternating q2hr RTC 1 week Assessment & Plan (12/13/2020 11:53 AM CDT): Failing graft Diffuse thickening / BAT 20/50 OD / decreased ADL (driving at night) / minimal astigmatism I have reviewed, made the necessary changes and agree with the above. REC: DSEK OD Risks, benefits, and alternatives of surgery discussed in detail with patient including but not limited to infection, bleeding, persistent inflammation, pain, diplopia, ptosis, need for further visits and surgeries, need for spectacle or contact lens correction after surgery, possible loss of vision, possible loss of the eye, and risks of anesthesia. The patient understands these risks and wishes to proceed. (PF) HC QID OD, Qdaily OS Assessment & Plan (06/26/2020 9:39 AM LUMBER SORTER): Diffuse thickening, pigmented KP, no AC reaction -- probable early failure (PF) HC QID OD, Qdaily OS RTC 12/05 (pt [facility]bin in [facility]) Assessment & Plan (04/20/2020 12:07 PM CDT): Mild diffuse thickening w/o KP or AC rxn OD (PF) HC 1% OU QD Assessment & Plan (12/07/2018 12:57 PM CDT): OD graft with edema inferiorly encroaching on visual axis. No signs of rejection today. OS graft clear. Cell counts: OD 620 OS 476 CPM (preservative-free hydrocortisone qhs OU). RTC 1 year with confocal OU Assessment & Plan (04/06/2018 12:14 PM CDT): OD graft with edema inferiorly encroaching on visual axis. No signs of rejection today. OS graft clear. RTC November 2008 with confocal OU. Hypercholesterolemia 03/19/2015 Overview (11/20/2016): High cholesterol Gastroesophageal reflux disease 06/08/2012 Former smoker 01/30/2011 Overview (11/26/2017): Description: 05-25-2012 Nuclear senile cataract OS 01/30/2011 Assessment & Plan (12/25/2022 11:34 AM CDT): VA 20/40-2 w/ new correction today but pt not bothered nor interested in CEIOL. -- CTM Assessment & Plan (12/13/2020 11:54 AM CDT): observe Assessment & Plan (12/07/2018 12:48 PM CDT): NVS; recommend observation Assessment & Plan (04/06/2018 12:14 PM CDT): NVS. Monitor. 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), DSEK/ant vit/IOL reposition OD 02/06/21; Age-related cataract of left eye from Last 3 Months Surgical History Surgery Date Site/Laterality Comments OTHER SURGICAL HISTORY Corneal disorder: 3 cornea transplants OTHER SURGICAL HISTORY Gallstones: Cholecystectomy TUBAL LIGATION Tubal Ligation BLADDER SURGERY Bladder surgery OTHER SURGICAL HISTORY Breast cyst removed OTHER SURGICAL HISTORY Sebaceous cysts: Axillary and chest cysts removed OTHER SURGICAL HISTORY Discectomy, neck OTHER SURGICAL HISTORY 08/17/2014 - 08/16/2015 Discectomy, neck, x 3 TOTAL VAGINAL HYSTERECTOMY 02/18/2017 [facility], RSO, anterior colporrhaphy OTHER SURGICAL HISTORY 02/18/2017 [facility] with RSO, [place] Culdoplasty with Anterior Colporrhaphy CHOLECYSTECTOMY OOPHORECTOMY BLADDER SUSPENSION PENETRATING KERATOPLASTY 05/17/2007 - 06/16/2007 Right PENETRATING KERATOPLASTY 08/17/1994 - 08/16/1995 Left SPINE SURGERY 08/17/2014 - 08/16/2015 cervical CATARACT EXTRACTION 08/17/2006 - 08/16/2007 Right EYE SURGERY 02/06/2021 Right DSEK CORNEAL TRANSPLANT 08/17/2020 - 08/16/2021 Right COLONOSCOPY Medical History Medical History Date Comments Corneal disorder Corneal disorde r; Comments: [facility] 03/19/2015 - Calculus of gallbladder [place] es; Comments: [facility] 03/19/2015 - Hx Other Medical High Cholestero l; Comments: [facility] 03/19/2015 - Disorder of thyroid Thyroid dise ase Hx Other Medical Stomach and [place] el problems; Comments: [facility] 03/19/2015 - Hx Other Medical Sebaceous cysts ; Comments: [facility] 03/19/2015 - Cataract Type 2 diabetes mellitus (HCC) GERD (gastroesophageal reflux disease) Arthritis Migraines Dizziness Coronary artery disease BRCA2 negative BRCA1 negative Family History Medical History Relation Name Comments Alcohol abuse Father Jm Heart disease Father Jm Heart disease; Other Father Jm Stomach problem s; Breast cancer Father's Sister 2 Cancer, b reast; Cause of : Cancer, breast Breast cancer Maternal Grandmother Cancer , breast; Arthritis Mother Diana Breast cancer Mother Diana Cancer, breast ; Cancer Mother Diana Cervical cancer Mother Diana Cancer, cerv ical; Cause of : Cancer, cervical Diabetes Mother Diana Diabetes type II Mother Diana Diabetes me llitus type 2; Miscarriages / Stillbirths Mother Diana Anesthesia problems Neg Hx Fuchs' dystrophy Neg Hx Glaucoma Neg Hx Macular degeneration Neg Hx Ovarian cancer Neg Hx Retinal detachment Neg Hx Thyroid cancer Neg Hx Relation Name Status Comments Father Jm Father's Sister 1 Father's Sister 2 Maternal Grandmother Mother Diana Social History Tobacco Use Types Packs/Day Years Used Date Smoking Tobacco: Former Cigarettes 1 970 - 2008 Smokeless Tobacco: Never Tobacco Cessation:Counseling Given: Not Answered Alcohol Use Standard Drinks/Week Comments Yes 0 (1 standard drink = 0.6 oz pur e alcohol) Social AUDIT-C Answer Date Recorded Frequency of Alcohol Consumption Not on file 03/23/2023 Q2: How many drinks containi ng alcohol do you have on a typical day when you are drinking? Patient does not drink Frequency of Binge Drinking Not on file 02/2023 PHQ-2 Answer Date Recorded PHQ-2 Total Score (If total score is 3 or more points, staff should administer the PHQ-9) 2 06/22/2023 Comments No Sex and Gender Information Value Date Recorded Sex Assigned at Not on file Legal Sex Female 2:37 AM LUMBER SORTER Gender Identity Female 12/08/2021 11:53 AM CDT Sexual Orientation Straight 12/08/2021 11 :53 AM CDT Obstetrics History Para Term AB IAB SAB Ectopic Multiple Livin g Live Births 2 2 2 0 0 0 0 0 0 2 2 Date Outcome GA Total Labor Labor/2nd/3rd Weight Sex Type Anes PTL Hanna A1 A5 Name Clin 1981 Term Vag-S pont Living 1983 Term M Vag-S pont Living Last Filed Vital Signs Vital Sign Reading Time Taken Comments Blood Pressure 148/87 07/30/2023 10:54 AM LUMBER SORTER Pulse 88 07/30/2023 10:54 AM LUMBER SORTER Temperature 36.6 C (97.9 F) 07/30/2023 10:54 AM LUMBER SORTER Respiratory Rate 18 02/08/2022 11:12 AM CDT Oxygen Saturation 98% 07/30/2023 10:54 AM LUMBER SORTER Inhaled Oxygen Concentration - - Weight 77.6 kg (171 lb) 07/30/2023 10:54 AM LUMBER SORTER Height 170.2 cm (5' 7) 09/01/2024 9:20 AM LUMBER SORTER Body Mass Index 27.6 07/30/2023 10:54 AM LUMBER SORTER Plan of Treatment Health Maintenance Due Date Last Done Comments Albumin Creatinine Ratio, Urine 1952 Colon Cancer Screening-Colonoscopy 1952 Hemoglobin A1C 1952 Hepatitis C Screening 1952 Foot Exam 1952 DTaP/Tdap/Td Vaccine (1 - Tdap) 1963 Hepatitis B Screening 1970 Pneumococcal vaccine 65+ (1 of 2 - PCV) 1971 Osteoporosis Screening-Bone Density Scan 06/24/2020 06/24/2018 Zoster Vaccine (2 of 2) 02/18/2021 12/24/2020 Well Visit 65+ 06/19/2022 06/19/2021, 05/11/2017 eGFR 02/07/2023 02/07/2022, 07/0 01/2017, 02/16/2017 Fall Risk Assessment 02/08/2023 02/08/2022 Lipid Panel 02/25/2023 02/25/2022 Depression Screening 06/22/2024 06/22/2023, 06/13/2019, 06/08/2018 Dilated Eye Exam 12/24/2024 12/25/2023, 04/06/2018 Influenza Vaccine (Season Ended) 2025 05/17/2017, 06/02/2016, 06/16/2014, Additional history exists Breast Cancer Screening-Mammogram 09/01/2025 09/01/2024, 07/21/2023, 06/29/2020, Additional history exists Medical Devices Implanted Type Area Professional Benefits Sales Consultant Device Identifier Shelf Expiration Date Model / Serial / Lot Lens Lens Right: Eye Other - See Comments Other - see comments Bilatera l: Eye Description: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 2015 per pt report) [facility] Tiesha Transplant Srvcs V0090 Implant Dsek Left Tissue Cornea - [id number]- [id number] - [id number] Implanted:Qty: 1 on 02/06/2021 by Gonzalez Willis MD at [facility] Right: Eye Mid Tiesha Transplant Srvcs 02/16/2021 V0090 / [id number] Procedures Procedure Name Priority Date/Time Associated Diagnosis Comments SCREENING MAMMOGRAM BILATERAL W YANN Schedule Routine, Read Routine (OP Routine) 09/01/2024 9:26 AM LUMBER SORTER Visit for screening mammogram POCT LIPID PANEL Routine 02/25/2022 2:39 PM CDT Hypercholesterolemi a EGFR STAT 02/07/2022 10:56 PM CDT DEXA AXIAL SKELETON BONE DENSITY 1 OR MORE SITES Schedule Routine, Read Routine (OP Routine) 06/24/2018 11:42 AM LUMBER SORTER Screening for osteoporosis from Last 3 Months or Most Recently Relevant to Health Maintenance Results * Screening Mammogram Bilateral W Yann (09/01/2024 9:26 AM LUMBER SORTER) Anatomical Region Laterality Modality Breast Bilateral Mammography Impressions 09/01/2024 11:01 AM LUMBER SORTER BI-RADS ATLAS category (overall): 1 - Negative There is no mammographic evidence of malignancy. A 1 year screening mammogram is recommended. The patient has been or will be contacted. We recommend annual screening mammography for women at average risk of breast cancer beginning at age 40, based on guidelines of the [employer] (ACR Practice Parameter for the Performance of Screening and Diagnostic Mammography) and [employer]. For women with and elevated risk of breast cancer, please refer to the ACR Practice Parameter for specific screening recommendations. The patient will be entered into a reminder system with a target due date of 1 year for her next screening exam. Narrative 09/01/2024 11:01 AM LUMBER SORTER Screening Mammogram Bilateral W Yann: 09/01/24 The study was acquired using full field digital technology and interpreted from soft copy. 2D digital mammographic views, as well as 3D digital tomosynthesis were performed in the CC and MLO projections. This study was resulted using Computer-Aided Detection (CAD). CLINICAL: Visit for screening mammogram. Medical history includes BRCA 1 Negative and BRCA 2 Negative. History of breast cancer in Mother, Maternal Grandmother, Father's Sister. No comparisons were made when reading this study. BREAST TISSUE: There are scattered areas of fibroglandular density. FINDINGS: No suspicious masses, suspicious calcifications, or other suspicious findings are seen within either breast. There has been no suspicious change. us Spencer Noe MD IMG MAMMO PROCEDURES Final Result * POCT lipid panel (02/25/2022 2:39 PM CDT) Cholesterol, POC 113 mg/dL HDL, POC 44 mg/dL Triglycerides, POC 235 mg/dL LDL Cholesterol POC 21 mg/dL Chol/HDL Ratio, POC 2.5 Non-HDL Cholesterol, POC 68 mg/dL Cholesterol Total, POC 113 mg/dL Capillary blood 02/25/2022 2 :39 PM CDT Michelle Nieves NP POINT OF CARE TEST ORDERA BLES Final Result * eGFR (02/07/2022 10:56 PM CDT) eGFR 49 mL/min/1. 73 m2 SUZ[facility]NA KHAN Comment: Interpretive Data Reference Interval Normal >/= 90 mL/min/1.73m2 Mildly decreased* 60 - 89 mL/min/1.73m2 Mildly to moderately decreased 45 - 59 mL/min/1.73m2 Moderately to severely decreased 30 - 44 mL/min/1.73m2 Severely decreased 15 - 29 mL/min/1.73m2 Kidney Failure < 15 mL/min/1.73m2 *Relative to young adult level Estimated glomerular filtration rate is determined by the 2020 CKD-EPI equation recommended by the National Kidney Foundation (A Unifying Approach to GFR Estimation: Recommendations of the NKF-ASK Task Force on Reassessing the Inclusion of Race in Diagnosing Kidney Disease, JASN 2020). The CKD-EPI equation should not be used for patients with unstable renal function and has not been validated in children and those over 70. Current interpretive data was last reviewed 2021. Blood 02/07/2022 10:5 6 PM CDT 02/07/2022 11:03 PM CDT Zehra Maier MD LAB BLOOD ORDERABLES F inal Result SUZANNA [id number] [address] Department [place] [address] * Dexa Axial Skeleton Bone Density 1 or 2 Site (06/24/2018 11:42 AM LUMBER SORTER) Anatomical Region Laterality Modality Body N/A Other 06/24/2018 12:0 7 PM LUMBER SORTER Impressions 06/24/2018 12:09 PM LUMBER SORTER 1. NORMAL BONE MINERAL DENSITY STUDY OF THE RIGHT HIP. 2. NORMAL BONE MINERAL DENSITY STUDY OF THE LEFT HIP. 3. NORMAL BONE MINERAL DENSITY STUDY THE LUMBAR SPINE. THERE IS MILD LEVOSCOLIOSIS AND MODERATE OSTEOARTHRITIS. COMMENT: W.H.O. defines the T-score of between -1 and -2.5 as osteopenia, the level at which there may be an increased risk of developing osteoporosis and fractures in the future. Osteoporosis is defined as T-score lower than -2.5 (significantly increased risk of fracture due to osteoporosis). T-score is a comparison to peak bone mineral density of young adult reference population. Z-score is a comparison to bone mineral density of sex and age group population. Electronically signed by: Atul Ewing M.D. Narrative 06/24/2018 12:09 PM LUMBER SORTER DEXA AXIAL SKELETON BONE DENSITY 1 OR MORE SITES HISTORY: Screening for osteoporosis COMPARISON: None available. FINDINGS: DXA RIGHT HIP RESULTS SUMMARY: 1. Femoral neck BMD 0.817 (g/cmsquared); T-SCORE -0.3 2. Total hip BMD 0.967 (g/cmsquared); T-SCORE 0.2 DXA LEFT HIP RESULTS SUMMARY: 1. Femoral neck BMD 0.815 (g/cmsquared); T-SCORE -0.3 2. Total hip BMD 0.953 (g/cmsquared); T-SCORE 0.1 DXA L-SPINE RESULTS SUMMARY: 1. Total lumbar BMD 1.288 (g/cmsquared); T-SCORE 2.2 Procedure Note Atul Ewing MD - 06/24/2018 DEXA AXIAL SKELETON BONE DENSITY 1 OR MORE SITES HISTORY: Screening for osteoporosis COMPARISON: None available. FINDINGS: DXA RIGHT HIP RESULTS SUMMARY: 1. Femoral neck BMD 0.817 (g/cmsquared); T-SCORE -0.3 2. Total hip BMD 0.967 (g/cmsquared); T-SCORE 0.2 DXA LEFT HIP RESULTS SUMMARY: 1. Femoral neck BMD 0.815 (g/cmsquared); T-SCORE -0.3 2. Total hip BMD 0.953 (g/cmsquared); T-SCORE 0.1 DXA L-SPINE RESULTS SUMMARY: 1. Total lumbar BMD 1.288 (g/cmsquared); T-SCORE 2.2 IMPRESSION: 1. NORMAL BONE MINERAL DENSITY STUDY OF THE RIGHT HIP. 2. NORMAL BONE MINERAL DENSITY STUDY OF THE LEFT HIP. 3. NORMAL BONE MINERAL DENSITY STUDY THE LUMBAR SPINE. THERE IS MILD LEVOSCOLIOSIS AND MODERATE OSTEOARTHRITIS. COMMENT: W.H.O. defines the T-score of between -1 and -2.5 as osteopenia, the level at which there may be an increased risk of developing osteoporosis and fractures in the future. Osteoporosis is defined as T-score lower than -2.5 (significantly increased risk of fracture due to osteoporosis). T-score is a comparison to peak bone mineral density of young adult reference population. Z-score is a comparison to bone mineral density of sex and age group population. Electronically signed by: Atul Ewing M.D. Spencer Noe MD IM DXA PROCEDURES Final R esult from Last 3 Months or Most Recently Relevant to Health Maintenance Insurance [facility] MEDICARE [facility] MEDICARE Address: [id number] [place] [address] [employer] MEDICARE Advance Directives For more information, please contact: [phone] * Full Code (Latest Code Status on File) Date Activated Date Inactivated Comments 02/08/2022 4:30 AM 02/08/2022 8:01 PM Care Teams Theater Manager Relationship Specialty Start Date End Date Royal Kumar MD [address] [place] [address] PCP - General 04/06/15
--- OUTSIDE RECORDS SUMMARY | 2025-03-03 15:02 | XMS_ITS | Patient Health Record ---
Author Organization [facility] ([address]) Address [address] [place] [address] Care Team Providers Care Fruit Worker Name Role Phone Royal Mora Primary Care Provider Unavail able Dr. Stephane Navarro Unavailable [phone] Gina Santiago Unavailable [phone] Allergies Allergen (clinical drug ingredient) Drug/Non Drug Allergy documented on EMR Reaction Allergy Type Onset Date Status Penicillin G Benzathine other reaction Drug Allergy Active Reason For Referral Reason Botox, 200u q 12 wee ar Referral Organization [facility] Referring Provider First Name Stephane Referring Provider Last Name Melanie Referring Provider Speciality Neurology [facility] Referred Provider Carline Navarro Referred Address [address] [place] [id number], Referred Provider Specialty Neurology Referral Priority Routine Medications Medication SIG (Take, Route, Frequency, Duration) Notes Start Date End Date Status WELLBUTRIN SR 150 mg/12 hours 1 tab(s) orally 2 times a day Active CLINDAMYCIN 300 mg 1 cap(s) orally every 6 hours Active Wellbutrin SR 150 MG 1 tab(s) orally 2 times a day Active PROCHLORPERAZINE 10 mg 1 tab(s) orally 3 times a day As needed Active Clindamycin HCl 300 MG 1 cap(s) orally every 6 hours Active PANTOPRAZOLE 40 mg 1 tab(s) orally once a day Active Pantoprazole Sodium 40 MG 1 tab(s) orally once a day Active LINZESS 145 mcg 1 cap(s) orally once a day Active Linzess 145 MCG 1 cap(s) orally once a day Active ATORVASTATIN 20 mg 1 tab(s) orally once a day Active Prochlorperazine Maleate 10 MG 1 tablet orally Three times a day; Duration: 30 days As needed Active DIGOXIN 62.5 mcg (0.0625 mg) 1 tab(s) orally once a day .375mg Active Atorvastatin Calcium 20 MG 1 tab(s) orally once a day Active NORTRIPTYLINE 25 mg 1 cap(s) orally 3 times a day Active Digoxin 62.5 MCG (0.0625 MG) 1 TAB(S) ORALLY ONCE A DAY *Please review and pick correct strength-formulati on from Anatole options. If intended option is not shown, discontinue and re-order from Quick Search* Active METFORMIN 500 mg 1 tab(s) orally once a day Active Nortriptyline HCl 25 MG 1 cap(s) orally 3 times a day Active LEVOTHYROXINE 100 mcg (0.1 mg) 1 cap(s) orally once a day Active metFORMIN HCl ER 500 MG 1 tab(s) orally once a day Active FUROSEMIDE 20 mg 1 tab(s) orally once a day Active Levothyroxine Sodium 100 MCG (0.1 MG) 1 CAP(S) ORALLY ONCE A DAY *Please review and pick correct strength-formulati on from Anatole options. If intended option is not shown, discontinue and re-order from Quick Search* Active Furosemide 20 MG 1 tab(s) orally once a day Active Social History Tobacco Use: Social History Observation Description Date Details (start date - stop date) Former Smoker NA - NA Smoking Smart Form: Question Answer Notes Are you a: former smoker Additional Findings:Tobacco Non-User Ex-light ci garette smoker (1-9/day) Problems Problem Type SNOMED Code ICD Code Onset Dates Problem Status W/U Status Risk Notes Problem Chronic migraine without aura, non-refractor y (disorder) (264512539050 100) Migraine without aura, not intractable, without status migrainosus (G43.009) Active confirmed Problem Migraine with aura (6966057) Migraine with aura, not intractable, without status migrainosus (G43.109) Active confirmed Problem Chronic migraine without aura, not intractable, without status migrainosus (G43.709) Active confirmed Encounters Encounter Location Date Provider Diagnosis [facility] [address] [place] [address] 05/26/2024 Gina Santiago Chronic migraine without aura, not intractable, without status migrainosus G43.[address] [address] 10/20/2024 Gina Santiago Chronic migraine without aura, not intractable, without status migrainosus G43.[address] [address] 01/12/2025 Gina Santiago Chronic migraine without aura, not intractable, without status migrainosus G43.709 Assessments Encounter Date Diagnosis (ICD Code) Assessment Notes Treatment Notes Treatment Clinical Notes Section Notes 05/26/2024 Chronic migraine without aura, not intractable, without status migrainosus (ICD-10 - G43.709) 10/20/2024 Chronic migraine without aura, not intractable, without status migrainosus (ICD-10 - G43.709) -Abortive treatment plan: Continue compazine PRN.-Preventive treatment plan: Continue Botox. -Educated the patient on migraine lifestyle recommendations. I recommended the following measures: avoid known triggers of migraine, drink > 100 fluid ounces of non-caffeinated fluid daily, limit caffeine to 2 servings/day, sleep 7-8 hours/night and address any sleep concerns with us and report symptoms of snoring or fatigue; healthy management of stress; avoid treating headaches more than 2 days/week with abortive medication unless approved in treatment plan; can take Riboflavin 400 mg and Magnesium 500 mg daily as supplements; keep scheduled follow-up appointments 01/12/2025 Chronic migraine without aura, not intractable, without status migrainosus (ICD-10 - G43.709) Plan Of Treatment Next Appt Details Provider Name:Gina delgado, 04/06/2025 10:20:00 AM, [address] [facility], [address] [facility], [place], [address], Insurance Providers Payer Name Payer Address Payer Phone Subscriber Number Group Number Insured Name Patient Relationship to Insured Coverage Start Date Coverage End Date [employer] Medicare [address] [place] [address] [id number] Fay Beltrán Self - patient is the insured 4 Medical (General) History Medical History History ICD Code Migraine Hypothyroidism HLD Cataracts GERD Depression Prediabetic SVT Cervical DDD Surgical History Surgery Date(Month/Year) Corneal transplant Cervical disc replacements Hysterectomy Bladder suspension CCK
--- OUTSIDE RECORDS SUMMARY | 2025-03-03 15:02 | XMS_ITS | Referral Summary ---
Author Organization [facility] Address [address] [place] [address] Care Team Providers Care Drum Plater Name Role Phone Royal Kumar MD Primary Care Prov ider Encounters Date Type Department Care Team Description 12/30/2024 11:00 AM CDT Office Visit [facility] 6th [place] [address] Louis Bishop MD Macular corneal dystrophy of both eyes (Primary Dx); S/p PKP OU (OD x 2 last 2006, OS x 1 1994), DSEK/ant vit/IOL reposition OD 02/06/21; Age-related cataract of left eye from Last 3 Months Allergies Active Allergy Reactions Criticality Noted Date [...] (01/25/2021): Added automatically from request for surgery [id number] 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 Recent local MRx. (no change person 2 mos) Using PF HC daily OU [...] OS Assessment & Plan (06/26/2020 9:39 AM UM RN): Diffuse thickening, pigmented KP, no AC reaction -- probable early failure (PF) HC QID OD, Qdaily OS RTC 12/05 (pt [facility]bin in [facility]) Assessment & Plan (04/20/2020 12:07 PM [...] Plan (04/06/2018 12:14 PM CDT): NVS. Monitor. Social History Tobacco Use Types Packs/Day Years Used Date Smoking Tobacco: Former Cigarettes 1 0 - 2008 Smokeless Tobacco: Never Tobacco Cessation:Counseling [...] on file Legal Sex Female 2:37 AM UM RN Gender Identity Female 12/08/2021 11:53 AM CDT Sexual Orientation Straight 12/08/2021 11 :53 AM CDT Last Filed Vital Signs Vital Sign Reading Time Taken Comments Blood Pressure 148/87 07/30/2023 10:54 AM UM RN Pulse 88 07/30/2023 10:54 AM UM RN Temperature 36.6 C (97.9 F) 07/30/2023 10:54 AM UM RN Respiratory Rate 18 02/08/2022 11:12 AM CDT Oxygen Saturation 98% 07/30/2023 10:54 AM UM RN Inhaled Oxygen Concentration - - Weight 77.6 kg (171 lb) 07/30/2023 10:54 AM UM RN Height 170.2 cm (5' 7) 09/01/2024 9:20 AM UM RN Body Mass Index 27.6 07/30/2023 10:54 AM UM RN Plan of Treatment Not on file Medical Devices Implanted Type Area Director Of Compliance Device Identifier Shelf Expiration Date Model / Serial / Lot Lens Lens Right: Eye Other - See Comments Other - see comments Bilatera l: Eye Description: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 2014 per pt report) Mid Tiesha Transplant Srvcs V0090 Implant Dsek Left Tissue Cornea - [id number] - [id number] Implanted:Qty: 1 on 02/06/2021 by Gonzalez Willis MD at [facility] Right: Eye Mid Tiesha Transplant Srvcs 02/16/2021 V0090 / [id number] / [id number] Procedures Procedure Name Priority Date/Time Associated Diagnosis Comments SCREENING MAMMOGRAM BILATERAL W YANN Schedule Routine, Read Routine (OP Routine) 09/01/2024 9:26 AM UM RN Visit for screening mammogram POCT LIPID PANEL Routine 02/25/2022 2:39 PM CDT Hypercholesterolemi a EGFR STAT 02/07/2022 10:56 PM CDT DEXA AXIAL SKELETON BONE DENSITY 1 OR MORE SITES Schedule Routine, Read Routine (OP Routine) 06/24/2018 11:42 AM UM RN Screening for osteoporosis from Last 3 Months or Most Recently Relevant to Health Maintenance Results * Screening Mammogram Bilateral W Yann (09/01/2024 9:26 AM UM RN) Anatomical Region Laterality Modality Breast Bilateral Mammography Impressions 09/01/2024 11:01 AM UM RN BI-RADS ATLAS category (overall): 1 - Negative There is no mammographic evidence of malignancy. A 1 year screening mammogram is recommended. The patient has been or will be contacted. We recommend annual screening mammography for women at average risk of breast cancer beginning at age 40, based on guidelines of the [place] [employer] (ACR Practice Parameter for the Performance of Screening and Diagnostic Mammography) and [place] [employer]. For women with and elevated risk of breast cancer, please refer to the ACR Practice Parameter for specific screening recommendations. The patient will be entered into a reminder system with a target due date of 1 year for her next screening exam. Narrative 09/01/2024 11:01 AM UM RN Screening Mammogram Bilateral W Yann: 09/01/24 The [...] breast. There has been no suspicious change. Spencer Noe MD IMG MAMMO PROCEDURES Final [...] 6 PM CDT 02/07/2022 11:03 PM CDT us Zehra Maier MD LAB BLOOD [place] [address] [address] Department [place] [address] * Dexa Axial Skeleton Bone Density 1 or 2 Site (06/24/2018 11:42 AM UM RN) Anatomical Region Laterality Modality Body N/A Other 06/24/2018 12:0 7 PM UM RN Impressions 06/24/2018 12:09 PM UM RN 1. NORMAL BONE MINERAL DENSITY STUDY OF [...] Atul Ewing M.D. Narrative 06/24/2018 12:09 PM UM RN DEXA AXIAL SKELETON BONE DENSITY 1 OR [...] population. Electronically signed by: Atul Ewing M.D. [facility] Lazaro Noe MD [facility] DXA PROCEDURES Final R esult from Last 3 Months or Most Recently Relevant to Health Maintenance Insurance A[employer] MEDICARE T MEDICARE Advance Directives For more information, please contact: [phone] * Full Code (Latest Code Status on File) Date Activated Date Inactivated Comments 02/08/2022 4:30 AM 02/08/2022 8:01 PM Care Teams Drum Plater Relationship Specialty Start Date End Date Royal Kumar MD [address] [place] [address] PCP - General 04/06/15
--- OUTSIDE RECORDS SUMMARY | 2025-03-03 15:02 | XMS_ITS | Clinical Summary ---
Author Organization [facility] Address [address] [place] [address] Care Team Providers Care Certified Orthotist Practice Manager Name Role Phone Royal Kumar MD Primary Care Provider + Gauri Pickard RN Unavailable [phone] Source Comments [facility],non-owned Affiliates and Associated Physician Practices is amultiple site organization consisting of ambulatory clinics and hospital sitesin [place], [place], [place] and [place]. This disclosure is being madepursuant to the Care Everywhere program and may not contain all information available regarding this patient. Last updated 18.[facility] Allergies Active Allergy Reactions Criticality Noted Date Comments Penicillins 05/16/2015 Medications * Be aware that medications may not be up to date on this document. Alwaysverify current medications with the patient. omeprazole (PRILOSEC) 40 MG capsule Take 40 mg by mouth 2 times daily Active levothyroxine (SYNTHROID) 100 MCG tablet Take 100 mcg by mouth once daily Active amitriptyline (ELAVIL) 75 MG tablet Take 75 mg by mouth at bedtime Active digoxin (LANOXIN) 0.25 MG tablet Take 0.25 mg by mouth once daily Active multivitamin daily (THERAGRAN) tablet Take 1 Tab by mouth once daily Active Fish Oil-Cholecalcif philip (FISH OIL + D3 PO) Take 1 Tab by mouth once daily Active Glucosamine-Cho ndroitin (COSAMIN DS PO) Take 1 Tab by mouth once daily Active Calcium Acetate-Magnesi um Carb 450-200 MG Take 1 Tab by mouth once daily Active simvastatin (ZOCOR) 40 MG tablet Take 40 mg by mouth at bedtime 06/21/2015 Active oxyCODONE-aceta minophen (PERCOCET) 5-325 MG tablet Take 1 Tab by mouth every 6 hours as needed for Pain 50 Tab 0 07/04/2015 Active methocarbamol (ROBAXIN) 750 MG tablet Take 1 Tab by mouth every 8 hours as needed for Muscle Spasms 40 Tab 1 07/04/2015 Active piroxicam (FELDENE) 10 MG capsule Take 1 Cap by mouth 2 times daily 60 Cap 1 08/06/2015 Active Social History Tobacco Use Types Packs/Day Years Used Date Smoking Tobacco: Former Cigarettes Q uit: 08/17/2010 Smokeless Tobacco: Never Alcohol Use Standard Drinks/Week Comments Yes 2.5 (1 standard drink = 0.6 oz p ure alcohol) every Thursday Comments No Sex and Gender Information Value Date Recorded Sex Assigned at Not on file Legal Sex Female 1:54 PM CDT Gender Identity Not on file Sexual Orientation Not on file Occupation Industry Job Start Date Job End Date RETIRED Not on file Not on file Not on file Last Filed Vital Signs Vital Sign Reading Time Taken Comments Blood Pressure 107/77 08/06/2015 10:03 AM WHEEL OF FORTUNE DEALER Pulse 97 08/06/2015 10:03 AM WHEEL OF FORTUNE DEALER Temperature 36.7 C (98 F) 08/06/2015 10:03 AM WHEEL OF FORTUNE DEALER Respiratory Rate 18 06/22/2015 12:20 PM WHEEL OF FORTUNE DEALER Oxygen Saturation 98% 06/22/2015 12:20 PM WHEEL OF FORTUNE DEALER Inhaled Oxygen Concentration - - Weight 83.9 kg (185 lb) 08/06/2015 10:03 AM WHEEL OF FORTUNE DEALER Height 167.6 cm (5' 6) 08/06/2015 10:03 AM WHEEL OF FORTUNE DEALER Body Mass Index 29.86 08/06/2015 10:03 AM WHEEL OF FORTUNE DEALER Plan of Treatment Health Maintenance Due Date Last Done Comments BONE DENSITY TESTING 1950 COLOGUARD (AGES 45-75) - COL ON CA SCREENING 1950 COLON MONITORING 1950 COLONOSCOPY - COLON CA SCREENING 1950 CT COLONOGRAPHY - COLON CA SCREENING 1950 Colorectal Cancer Screening 1950 FIT - COLON CA SCREENING 1950 FLEX SIG - COLON CA SCREENING 1950 MAMMOGRAM 1950 HEPATITIS C SCREENING 06/08/1970 DTAP/TDAP/TD VACCINES (1 - Tdap) 1971 PNEUMOCOCCAL VACCINE 50+ (1 of 1 - PCV) 2002 ZOSTER VACCINE (1 of 2) 2002 COVID-19 VACCINE (1 - 2023-2 5 season) 2024 DEPRESSION SCREENING 08/17/2024 MEDICARE AWV CALENDAR YEAR 2024 INFLUENZA VACCINE (#1) 2025 Respiratory Syncytial Virus (RSV) Vaccine Pt: or over 60 yrs (1 - 1-dose 75+ series) 2027 HEPATITIS B VACCINE Aged Out No longe r eligible based on patient's age to complete this topic HIB VACCINE Aged Out No longer eligi ble based on patient's age to complete this topic HPV VACCINE Aged Out No longer eligi ble based on patient's age to complete this topic MENINGOCOCCAL (Group B) VACC INE SHARED DECISION-MAKING Aged Out No longer eligibl e based on patient's age to complete this topic MENINGOCOCCAL GROUPS A/C/Y/W VACCINE Aged Out No longer eligible b ased on patient's age to complete this topic Medical Devices Implanted Type Area Sales Stock Associate Device Identifier Shelf Expiration Date Model / Serial / Lot Jarvis Walsh [facility] Jar 2.0cc Implanted:Qty : 1 on 06/21/2015 by Jerrell Benson MD at [facility] N/A: Spine Cervical [employer] 11/19/2017 [id number] / / [id number] Space Peek 5 X 16 X 14mm Implanted:Qty : 3 on 06/21/2015 by Jerrell Benson MD at [facility] N/A: Spine Cervical Medtronic [employer] 12/22/2022 [id number] / / [id number] Plate Ant Cerv Assem 55mm Implanted:Qty : 1 on 06/21/2015 by Jerrell Benson MD at [facility] N/A: Spine Cervical Medtronic Sof[employer] [id number] / / [id number] Self Drill Luis 4.0 X 13 Implanted:Qty : 8 on 06/21/2015 by Jerrell Benson MD at [facility] N/A: Spine Cervical Medtronic Sof[employer] [id number] / / Insurance [facility] MEDICARE ADV SELF PAY NO INSURANCE Member Subscriber Plan / Payer (Ef fective for All Dates) Name:Natalia Mahmood Member ID:Not on file Relation to Subscriber:Not on file Name:NATALIA MAHMOOD Subscriber ID:Not on file (Home) Address: [address] [place] [phone] Payer ID:Not on file Group ID:Not on file Type:Self Pay Address: [place], [place] Advance Directives * Full Code (Latest Code Status on File) Date Activated Date Inactivated Comments 06/21/2015 8:41 PM 06/22/2015 5:35 PM Care Teams Certified Orthotist Practice Manager Relationship Specialty Start Date End Date Royal Kumar MD [address] [address] PCP - General Family Medicine 05/03/15 Gauri Pickard, RN Meat Manager 06/22/15
[2025-03-03 15:05] VITALS: BP 126/66; PULSE 88; RESP 20; TEMP 36.7; O2SAT 95
[2025-03-03 15:21] LABS: EDCOVIDSCREEN Positive (Negative); EDINFLUASCREEN Negative (Negative); EDINFLUBSCREEN Negative (Negative); EDSTREPNEGPOS1 Negative (Negative)
== END 2025-03-03 15:38 | disposition home or self-care (01) ==
PROVIDERS: Emergency Provider Nurse Practitioner; PCP Family Medicine Adolescent Medicine
DX: U07.1 COVID-19 (principal); Z87.891 Personal history of nicotine dependence; E11.9 Type 2 diabetes mellitus without complications; Z79.84 Long term (current) use of oral hypoglycemic drugs; E78.5 Hyperlipidemia, unspecified; E03.9 Hypothyroidism, unspecified; I49.9 Cardiac arrhythmia, unspecified
CPT/HCPCS: 87426; 87804; 87880; 99213; G0463

== ENCOUNTER 2025-03-11 14:13 | Emergency (ER) | payer MEDICARE, SELFPAY ==
--- NOTE | ~2025-03-11 | XR_ITS ---
CHEST RADIOGRAPH, PA AND LATERAL CLINICAL HISTORY: cough . COMPARISON: 03/17/2014 TECHNIQUE: PA and lateral views of the chest. FINDINGS The cardiomediastinal silhouette is unremarkable. The lungs are clear. Fixation hardware within the lower cervical spine. IMPRESSION: No focal infiltrate or effusion. Reviewed, dictated and finalized at location A.
[2025-03-11 14:16] VITALS: BP 129/76; PULSE 102; RESP 20; TEMP 36.6; O2SAT 98
--- OUTSIDE RECORDS SUMMARY | 2025-03-11 14:16 | XMS_ITS ---
Author Organization [facility] ([address]) Address [address] [place] [address] Care Team Providers Care Bandsaw Operator Name Role Phone Royal Mora Primary Care Provider Unavail able Dr. Stephane Navarro Unavailable [phone] Gina Santiago Unavailable [phone] Allergies Allergen (clinical drug ingredient) Drug/Non Drug [...] review and pick correct strength-formulati on from Therma-Wavean options. If intended option is not shown, [...] W/U Status Risk Notes Problem Migraine with aura, not intractable, without status migrainosus (G43.109) Active confirmed Problem Chronic migraine without aura, non-refractor y (disorder) (699772298844 100) Migraine without aura, not intractable, without status migrainosus (G43.009) Active confirmed Encounters Encounter Location Date Provider Diagnosis [facility] [address] [address] 09/01/2024 Gina Santiago Chronic migraine without aura, [...] Provider Name:Gina delgado, 04/06/2025 10:20:00 AM[facility], [address], [place], [address], Progress Notes * Charles MAHMOODaDOB:[birth year] (74 yo F)Acc No.[id number]:09/01/2024 Progress Notes Patient: Fay LEE Provider: Marcy Santiago APRN :1950 A ge:74 Y S ex:Female Date:09/01/2024 Address:[address] [place], [place] [phone] Pcp:Royal Mora Subjective: * Chief Complaints: * 1 . Botox BB Only. * HPI: * Introduction: HPI: Karen Mahmood, who presented for Botox. * Initial History: INITIAL VISIT HISTORY: She is a 73 year old woman with a history of chronic migraine, hypothyroidism, DM2, HLD, CHF. She was previously under the care of Dr. Em at [facility], but Dr. Em moved out of [facility]. She is on Botox for migraine [...] Last injection on 05/26/24: Procerus 5 Units, Instant Potato Processor (Left) 5 Units, Instant Potato Processor (Right) 5 Units, Frontalis (Left) 12.5 Units, [...] M aternal aunt: No. S iblings: Yes. C hildada: Yes. She is not aware of a [...] *Please review and pick correct strength-formulation from [employer] options. If intended option is not shown, [...] *Please review and pick correct strength-formulation from [employer] options. If intended option is not shown, [...] TYPE A PER UNIT, Modifiers: JW , 43044 PT-FOCUSED HLTH RISK ASSMT, G8427 DOC MEDS VERIFIED W/PT OR RE, G2211 Complex e/m visit add on * Follow Up: 3 Months (Reason: Evaluation and Management. Toxin injection) * Billing Information: * Visit Code: 66526 Office Visit, Est Pt., Level 4. Modifiers: Office Visit, Est Pt., Level 3. Modifiers: Office Visit, Est Pt., Level 5. Modifiers: 25 * Procedure Codes: 40170 CHEMODENERV MUSC MIGRAINE. J0585 BOTULINUM TOXIN TYPE A PER UNIT. J0585 BOTULINUM TOXIN TYPE A PER UNIT. Modifiers: JW 30292 PT-FOCUSED HLTH RISK ASSMT. G8427 DOC MEDS VERIFIED W/PT OR RE. G2211 Complex e/m visit add on. * Electronic signature of NOLAN Keith-Karen on 03/11/2025 at 02:15 PM CDT Sign off status: Pending * Provider: Marcy Santiago APRN Date: 0 09/01/2024 Generated for Albai ng/Fadig/eTransmitting on: 0 03/11/2025 02:15 PM CDT History and Physical Notes * HPI (History of Present Illness) Category Sub-Category Detail Notes Category Not es *Introduction HPI: Fay Derasdmitrylee devendra, who presented for Botox *Headache Last injection on 05/26/24: Procerus 5 Units, Instant Potato Processor (Left) 5 Units, Instant Potato Processor (Right) 5 Units, Frontalis (Left) 12.5 Units, [...] under the care of Dr. Em at [facility], but Dr. Em moved out of [facility]. She is on Botox for migraine [...]
--- OUTSIDE RECORDS SUMMARY | 2025-03-11 14:16 | XMS_ITS | Referral Summary ---
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 Recent local MRx. (no mash filter cloth changer 2 mos) Using PF HC daily OU [...] OS Assessment & Plan (06/26/2020 9:39 AM JAR FILLER): Diffuse thickening, pigmented KP, no AC reaction -- probable early failure (PF) HC QID OD, Qdaily OS RTC 12/05 (pt corbin in [facility]) Assessment & Plan (04/20/2020 12:07 PM [...] on file Legal Sex Female 2:37 AM JAR FILLER Gender Identity Female 12/08/2021 11:53 AM CDT Sexual Orientation Straight 12/08/2021 11 :53 AM CDT Last Filed Vital Signs Vital Sign Reading Time Taken Comments Blood Pressure 148/87 07/30/2023 10:54 AM JAR FILLER Pulse 88 07/30/2023 10:54 AM JAR FILLER Temperature 36.6 C (97.9 F) 07/30/2023 10:54 AM JAR FILLER Respiratory Rate 18 02/08/2022 11:12 AM CDT Oxygen Saturation 98% 07/30/2023 10:54 AM JAR FILLER Inhaled Oxygen Concentration - - Weight 77.6 kg (171 lb) 07/30/2023 10:54 AM JAR FILLER Height 170.2 cm (5' 7) 09/01/2024 9:20 AM JAR FILLER Body Mass Index 27.6 07/30/2023 10:54 AM JAR FILLER Plan of Treatment Not on file Medical Devices Implanted Type Area Game Artist Device Identifier Shelf Expiration Date Model / [...] V0090 Implant Dsek Left Tissue Cornea - [id number] - [id number] Implanted:Qty: 1 on 02/06/2021 by Gonzalez Willis MD at [facility] Right: Eye Mid Tiesha Transplant Srvcs 02/16/2021 V0090 / [id number] Procedures Procedure Name Priority Date/Time Associated Diagnosis Comments SCREENING MAMMOGRAM BILATERAL W YANN Schedule Routine, Read Routine (OP Routine) 09/01/2024 9:26 AM JAR FILLER Visit for screening mammogram POCT LIPID PANEL Routine 02/25/2022 2:39 PM CDT Hypercholesterolemi a EGFR STAT 02/07/2022 10:56 PM CDT DEXA AXIAL SKELETON BONE DENSITY 1 OR MORE SITES Schedule Routine, Read Routine (OP Routine) 06/24/2018 11:42 AM JAR FILLER Screening for osteoporosis from Last 3 Months or Most Recently Relevant to Health Maintenance Results * Screening Mammogram Bilateral W Yann (09/01/2024 9:26 AM JAR FILLER) Anatomical Region Laterality Modality Breast Bilateral Mammography Impressions 09/01/2024 11:01 AM JAR FILLER BI-RADS ATLAS category (overall): 1 - Negative There is no mammographic evidence of malignancy. A 1 year screening mammogram is recommended. The patient has been or will be contacted. We recommend annual screening mammography for women at average risk of breast cancer beginning at age 40, based on guidelines of the [place] [employer] (ACR Practice Parameter for the Performance of Screening and Diagnostic Mammography) and [place] [employer]. For women with and elevated risk of breast cancer, please refer to the ACR Practice Parameter for specific screening recommendations. The patient will be entered into a reminder system with a target due date of 1 year for her next screening exam. Narrative 09/01/2024 11:01 AM JAR FILLER Screening Mammogram Bilateral W Yann: 09/01/24 The [...] BLOOD ORDER[place] [address] [address] [place] [address] * Dexa Axial Skeleton Bone Density 1 or 2 Site (06/24/2018 11:42 AM JAR FILLER) Anatomical Region Laterality Modality Body N/A Other 06/24/2018 12:0 7 PM JAR FILLER Impressions 06/24/2018 12:09 PM JAR FILLER 1. NORMAL BONE MINERAL DENSITY STUDY OF [...] Atul Ewing M.D. Narrative 06/24/2018 12:09 PM JAR FILLER DEXA AXIAL SKELETON BONE DENSITY 1 OR [...] population. Electronically signed by: Atul Ewing M.D. [facility] Lazaro Noe MD [facility] DXA PROCEDURES Final R esult from Last 3 Months or Most Recently Relevant to Health Maintenance Insurance AETNA MEDICARE T MEDICARE Advance Directives For more information, please contact: [phone] * Full Code (Latest Code Status on File) Date Activated Date Inactivated Comments 02/08/2022 4:30 AM 02/08/2022 8:01 PM Care Teams Scow Captain Relationship Specialty Start Date End Date Royal Kumar MD [address] [place] [address] PCP - General 04/06/15
--- OUTSIDE RECORDS SUMMARY | 2025-03-11 14:16 | XMS_ITS | Clinical Summary ---
Author Organization [facility] Address [address] [address] Care Team Providers Care Basketball Commentator Name Role Phone Royal Kumar MD Primary Care Provider + Gauri Pickard RN Unavailable [phone] Source Comments [facility],non-owned Affiliates and Associated Physician Practices is amultiple site organization consisting of ambulatory clinics and hospital sitesin [place], [place], [place] and [place]. This disclosure is being madepursuant to the Care Everywhere program and may not contain all information available regarding this patient. Last updated 18.[facility] Allergies Active Allergy Reactions Criticality Noted Date [...] Comments Blood Pressure 107/77 08/06/2015 10:03 AM ONCOLOGY COORDINATOR Pulse 97 08/06/2015 10:03 AM ONCOLOGY COORDINATOR Temperature 36.7 C (98 F) 08/06/2015 10:03 AM ONCOLOGY COORDINATOR Respiratory Rate 18 06/22/2015 12:20 PM ONCOLOGY COORDINATOR Oxygen Saturation 98% 06/22/2015 12:20 PM ONCOLOGY COORDINATOR Inhaled Oxygen Concentration - - Weight 83.9 kg (185 lb) 08/06/2015 10:03 AM ONCOLOGY COORDINATOR Height 167.6 cm (5' 6) 08/06/2015 10:03 AM ONCOLOGY COORDINATOR Body Mass Index 29.86 08/06/2015 10:03 AM ONCOLOGY COORDINATOR Plan of Treatment Health Maintenance Due Date [...] this topic Medical Devices Implanted Type Area Long Term Care Administrator Device Identifier Shelf Expiration Date Model / Serial / Lot Jarvis Walsh [facility] Jar 2.0cc Implanted:Qty : 1 on 06/21/2015 by Jerrell Benson MD at [facility] N/A: Spine Cervical [employer] 11/19/2017 [id number] / / [id number] Space Peek 5 X 16 X 14mm Implanted:Qty : 3 on 06/21/2015 by Jerrell Benson MD at [facility] N/A: Spine Cervical Medtronic Sof[employer] 12/22/2022 [id number] / / [id number] Plate Ant Cerv Assem 55mm Implanted:Qty : 1 on 06/21/2015 by Jerrell Benson MD at [facility] N/A: Spine Cervical Medtronic Sof[employer] [id number] / / [id number] Self Drill Luis 4.0 X 13 Implanted:Qty : 8 on 06/21/2015 by Jerrell Benson MD at [facility] N/A: Spine Cervical Medtronic Sof[employer] [id number] / / Insurance [facility] MEDICARE ADV SELF PAY NO INSURANCE Member Subscriber Plan / Payer (Ef fective for All Dates) Name:Natalia Mahmood Member ID:Not on file Relation to Subscriber:Not on file Name:NATALIA MAHMOOD Subscriber ID:Not on file (Home) Address: [address] [place] [id number] Payer ID:Not on file Group ID:Not on file Type:Self Pay Address: [place], [place] Advance Directives * Full Code (Latest Code Status on File) Date Activated Date Inactivated Comments 06/21/2015 8:41 PM 06/22/2015 5:35 PM Care Teams Basketball Commentator Relationship Specialty Start Date End Date Royal Kumar MD [address] [address] PCP - General Family Medicine 05/03/15 Gauri Pickard, RN Manager 06/22/15
--- OUTSIDE RECORDS SUMMARY | 2025-03-11 14:16 | XMS_ITS | Clinical Summary ---
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 Recent local MRx. (no plant changer 2 mos) Using PF HC daily [...] OS Assessment & Plan (06/26/2020 9:39 AM CLINICAL EDUCATION ACADEMIC COORDINATOR): Diffuse thickening, pigmented KP, no AC reaction -- probable early failure (PF) HC QID OD, Qdaily OS RTC 12/05 ([facility]) Assessment & Plan (04/20/2020 12:07 [...] Description 12/30/2024 11:00 AM CDT Office Visit [facility] Ophthalmology [address] [facility] 6th [place] [address] Louis Bishop MD Macular corneal [...] Comments Corneal disorder Corneal disorde r; Comments: [facility] 03/19/2015 - Calculus of gallbladder [place] es; Comments: [facility] 03/19/2015 - Hx Other Medical High Cholestero l; Comments: [facility] 03/19/2015 - Disorder of thyroid Thyroid dise ase Hx Other Medical Stomach and Baldwin el problems; Comments: [facility] 03/19/2015 - Hx Other Medical Sebaceous cysts ; Comments: [facility] 03/19/2015 - Cataract Type 2 [...] on file Legal Sex Female 2:37 AM CLINICAL EDUCATION ACADEMIC COORDINATOR Gender Identity Female 12/08/2021 11:53 AM CDT [...] Comments Blood Pressure 148/87 07/30/2023 10:54 AM CLINICAL EDUCATION ACADEMIC COORDINATOR Pulse 88 07/30/2023 10:54 AM CLINICAL EDUCATION ACADEMIC COORDINATOR Temperature 36.6 C (97.9 F) 07/30/2023 10:54 AM CLINICAL EDUCATION ACADEMIC COORDINATOR Respiratory Rate 18 02/08/2022 11:12 AM CDT Oxygen Saturation 98% 07/30/2023 10:54 AM CLINICAL EDUCATION ACADEMIC COORDINATOR Inhaled Oxygen Concentration - - Weight 77.6 kg (171 lb) 07/30/2023 10:54 AM CLINICAL EDUCATION ACADEMIC COORDINATOR Height 170.2 cm (5' 7) 09/01/2024 9:20 AM CLINICAL EDUCATION ACADEMIC COORDINATOR Body Mass Index 27.6 07/30/2023 10:54 AM CLINICAL EDUCATION ACADEMIC COORDINATOR Plan of Treatment Health Maintenance Due [...] Eye Exam 12/24/2024 12/25/2023, 04/06/2018 Influenza Vaccine (#1) 2025 7, 06/02/2016, 06/16/2014, Additional history exists Breast Cancer Screening-Mammogram 09/01/2025 09/01/2024, 07/21/2023, 06/29/2020, Additional history exists Medical Devices Implanted Type Area Upstream Biomanufacturing Technician Device Identifier Shelf Expiration Date Model / Serial / Lot Lens Lens Right: Eye Other - See Comments Other - see comments Bilatera l: Eye Description: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 2015 per pt report) [facility] Tiesha Transplant Srvcs V0090 Implant Dsek Left Tissue Cornea - [id number] V0090 - [id number] Implanted:Qty: 1 on 02/06/2021 by Gonzalez Willis MD at [facility] Right: Eye Mid Tiesha Transplant Srvcs 02/16/2021 V0090 / [id number] Procedures Procedure Name Priority Date/Time Associated Diagnosis Comments SCREENING MAMMOGRAM BILATERAL W YANN Schedule Routine, Read Routine (OP Routine) 09/01/2024 9:26 AM CLINICAL EDUCATION ACADEMIC COORDINATOR Visit for screening mammogram POCT LIPID PANEL Routine 02/25/2022 2:3 9 PM CDT Hypercholesterolemi a EGFR STAT 02/07/2022 10:56 PM CDT DEXA AXIAL SKELETON BONE DENSITY 1 OR MORE SITES Schedule Routine, Read Routine (OP Routine) 06/24/2018 11:42 AM CLINICAL EDUCATION ACADEMIC COORDINATOR Screening for osteoporosis from Last 3 Months or Most Recently Relevant to Health Maintenance Results * Screening Mammogram Bilateral W Yann (09/01/2024 9:26 AM CLINICAL EDUCATION ACADEMIC COORDINATOR) Anatomical Region Laterality Modality Breast Bilateral Mammography Impressions 09/01/2024 11:01 AM CLINICAL EDUCATION ACADEMIC COORDINATOR BI-RADS ATLAS category (overall): 1 - Negative There is no mammographic evidence of malignancy. A 1 year screening mammogram is recommended. The patient has been or will be contacted. We recommend annual screening mammography for women at average risk of breast cancer beginning at age 40, based on guidelines of the [employer] [place] [employer] (ACR Practice Parameter for the Performance of Screening and Diagnostic Mammography) and [employer] [place] [employer]. For women with and elevated risk of breast cancer, please refer to the ACR Practice Parameter for specific screening recommendations. The patient will be entered into a reminder system with a target due date of 1 year for her next screening exam. Narrative 09/01/2024 11:01 AM CLINICAL EDUCATION ACADEMIC COORDINATOR Screening Mammogram Bilateral W Yann: 09/01/24 The [...] 6 PM CDT 02/07/2022 11:03 PM CDT Zerha Maier MD LAB BLOOD ORDERABLES F inal Result [place] [address] [address] [place] [address] * Dexa Axial Skeleton Bone Density 1 or 2 Site (06/24/2018 11:42 AM CLINICAL EDUCATION ACADEMIC COORDINATOR) Anatomical Region Laterality Modality Body N/A Other 06/24/2018 12:0 7 PM CLINICAL EDUCATION ACADEMIC COORDINATOR Impressions 06/24/2018 12:09 PM CLINICAL EDUCATION ACADEMIC COORDINATOR 1. NORMAL BONE MINERAL DENSITY STUDY OF [...] Atul Ewing M.D. Narrative 06/24/2018 12:09 PM CLINICAL EDUCATION ACADEMIC COORDINATOR DEXA AXIAL SKELETON BONE DENSITY 1 OR [...] by: Atul Ewing M.D. Spencer Noe MD [facility] DXA PROCEDURES Final R esult from Last 3 Months or Most Recently Relevant to Health Maintenance Insurance AETNA MEDICARE [facility] MEDICARE Address: [facility] [id number] [place] [address] AETNA MEDICARE Advance Directives For more information, please contact: [phone] * Full Code (Latest Code Status on File) Date Activated Date Inactivated Comments 02/08/2022 4:30 AM 02/08/2022 8:01 PM Care Teams Color Receiver Relationship Specialty Start Date End Date Royal Kumar MD [address] [place] [id number] PCP - General 04/06/15
--- OUTSIDE RECORDS SUMMARY | 2025-03-11 14:16 | XMS_ITS | Patient Health Record ---
Author Organization [facility] ([address]) Address [address] [place] [address] Care Team Providers Care Foundry Operator Name Role Phone Royal Mora Primary Care Provider Unavail able Dr. Stephane Navarro Unavailable [phone] Gina Santiago Unavailable [phone] Allergies Allergen (clinical drug ingredient) Drug/Non Drug Allergy documented on EMR Reaction Allergy Type Onset Date Status Penicillin G Benzathine other reaction Drug Allergy Active Reason For Referral Reason Botox, 200u q 12 wee mo Referral Organization [facility] Referring Provider First Name Stephane Referring Provider Last Name Melanie Referring Provider Speciality Neurology [facility] Referred Provider Carline Navarro Referred Address [address] [place] [id number], Referred Provider Specialty Neurology Referral Priority Routine [...] review and pick correct strength-formulati on from Fotofeedback options. If intended option is not shown, [...] review and pick correct strength-formulati on from Fotofeedback options. If intended option is not shown, [...] Chronic migraine without aura, non-refractor y (disorder) (277880623694 100) Migraine without aura, not intractable, without status migrainosus (G43.009) Active confirmed Problem Migraine with aura, not intractable, without status migrainosus (G43.109) Active confirmed Problem Chronic migraine without aura, non-intractab le (477690535715 100) Chronic migraine without aura, not intractable, without status migrainosus (G43.709) Active confirmed Encounters Encounter Location Date Provider Diagnosis [facility] [address] [place] [phone] 05/26/2024 Gina Santiago Chronic migraine without aura, not intractable, without status migrainosus G43.[address] [address] 10/20/2024 Gina Santiago Chronic migraine without aura, not intractable, without status migrainosus G43.[address] [address] 01/12/2025 Gina Santiago Chronic migraine without aura, [...] Provider Name:Gina delgado, 04/06/2025 10:20:00 AM, [address] [facility], [address] [facility], [place], [address], Insurance Providers Payer Name Payer Address Payer Phone Subscriber Number Group Number Insured Name Patient Relationship to Insured Coverage Start Date Coverage End Date A[employer] Medicare [address] THEA Barriga [id number] Fay Beltrán Self - patient is the insured 4 Medical (General) History Medical History History ICD Code Migraine Hypothyroidism HLD Cataracts GERD Depression Prediabetic SVT Cervical DDD Surgical History Surgery Date(Month/Year) Corneal transplant Cervical disc replacements Hysterectomy Bladder suspension CCK
--- NOTE | 2025-03-11 14:22 | ED_ITS ---
HPI - URI/Sore Throat General Chief Complaint: Upper Respiratory Infection Stated Complaint: trouble taking deep breath/nose full [facility] with complaints of continued barking cough, occasional shortness of breath on exertion, headache, sinus pressure, green mucus from nose, and fatigue. Patient reports symptoms started 8 days ago after returning from a trip to [place] noted she was evaluated at this facility tested positive for COVID-19 a and was paced on Paxilovid. Patient reports taking the medication for a few days but did not continue this since it interacted with her sleeping medication and she was unable to sleep. Patient does report she was continuing to take the Sudafed and other [id number] medications with minimal relief of symptoms. Patient reports waking up today and was much more fatigued than she had been. Patient does have an appointment with primary care in 2 days, noted primary care was concerned that patient could have pneumonia. Denies fever, chills, body aches, sinus pain, nausea, vomiting, diarrhea. Related Data Home Medications ?Medication ?Instructions ?Recorded ?Confirmed ?Last Taken ?Type multivit with minerals-iron 18 1 tablet PO DAILY 07/29/19 11/03/24 07/25/24 History mg-folic ac 400 mcg-vit K 25 mcg tablet (Adults Multivitamin) omega 2-czn-grc-fish oil 1,000 mg 1 cap PO DAILY 07/29/19 11/03/24 07/25/24 History (120 mg-180 mg) capsule (Fish Oil) glucosamine-chondroitin 250 mg-200 2 tablet PO TID 07/04/24 11/03/24 07/25/24 History mg tablet (Osteo Bi-Flex) magnesium gluconate 30 mg (550 mg) 30 mg PO DAILY 07/04/24 11/03/24 07/25/24 History tablet Allergies Allergy/AdvReac Type Severity Reaction Status Date / Time latex AdvReac Unknown Unknown Verified 03/11/25 14:25 Penicillins AdvReac Unknown Swelling Verified 03/11/25 14:25 nicotine patch Allergy Unknown Unknown Uncoded 03/11/25 14:25 vicoden AdvReac Unknown Itching Uncoded 03/11/25 14:25 Review of Systems Constitutional: Constitutional: Reports as per HPI, Denies chills, Reports fatigue, Denies fever(s) and Denies weakness Eyes: Eyes: Reports no additional eye complaints ENT: Reports as per HPI, Reports vertigo, Reports dizziness, Reports nasal congestion and Denies sore throat Cardiovascular: Cardiovascular: Reports no additional cardiovascular complaints Respiratory: Respiratory: Reports as per HPI, Reports chest congestion, Reports cough, Reports dyspnea and Denies wheezing Gastrointestinal: Gastrointestinal: Reports no additional gastrointestinal complaints Genitourinary: Genitourinary: Reports no additional female genitourinary complaints Musculoskeletal: Musculoskeletal: Reports no additional musculoskeletal complaints Integumentary/Breasts: Skin/Breast: Reports system reviewed and no additional complaints, except as docu Neurologic: Reports as per HPI, Reports vertigo, Reports dizziness, Reports headache(s), Denies numbness and Denies weakness Psychiatric: Psychiatric: Reports no additional psychiatric complaints Endocrine: Endocrine: Reports no additional endocrine complaints Hematologic/Lymphatic: Hematologic/Lymphatic: Reports no additional hematologic/lymphatic complaints Allergic/Immunologic: Allergic/Immunologic: Reports no additional allergic/immunologic complaints PMFSH Past Medical History Medical History Chronic cardiac arrhythmia Hypothyroid Diabetes Hyperlipidemia Surgical History Surgical History Hx of cholecystectomy (2002) Hx of hysterectomy (02/2017) Social History Social History Smoking packs per day: 1 Smoking cigarettes per day: 20.0 Years smoked: 40 Smoking pack-years: 40.00 Smoking status: Former smoker Tobacco type: cigarettes Smoking end date: 08/17/11 Alcohol intake: never Substance use: current Substance use type: does not use Do You Feel Safe in your Home?: Yes Lack of Transportation: No Lack of Food: Never True Current Housing: I Have Housing Concerned About Future Housing: No Difficulty Paying Gas/Electric Bills: No Difficulty Paying for Meds: No Currently Unemployed: No Education: Master's Degree or Higher Difficulty w/ Childcare or Family Care: No Living arrangements: alone Spiritual care concerns: No Exam Const: General: no acute distress Nutritional Appearance: well nourished Orientation/consciousness: patient oriented x3 Limitations: no limitations Other: obviously fatigued HENMT: Head: normal to inspection Ears: external ears normal and TM's normal bilaterally Face/Nose/Sinus: Normal external nose present and Normal nares present Face and sinus: normal facial exam and sinuses nontender Mouth: Yes Normal oral and palatal mucosa present and Yes lip normal Throat: posterior oropharynx normal Neck: Neck: normal visual inspection and no lymphadenopathy Resp: Effort & Inspection: normal respiratory effort Auscultation: no crackles, no rales, no rhonchi, wheezes right upper and lung sounds not diminished Other: dry cough noted Cardio: Rate: regular rate Rhythm: regular rhythm Skin: General skin exam: normal color Rashes: no rashes Wounds: no wounds Neuro: General: patient oriented x3 Speech: normal speech Gait exam (Neuro): Normal gait present Psych: Mental Status: mental status grossly normal Affect: normal affect Attitude: cooperative Course Course Level of Care: Express Care Visit Vital Signs Vital signs: Vital Signs Temperature 97.9 F 03/11/25 14:16 Pulse Rate 102 H 03/11/25 14:16 Respiratory Rate 20 03/11/25 14:16 Blood Pressure 129/76 03/11/25 14:16 Pulse Oximetry 98 03/11/25 14:16 Oxygen Delivery Room Air 03/11/25 14:16 Temperature 97.9 F 03/11/25 14:16 Pulse Rate 102 H 03/11/25 14:16 Respiratory Rate 20 03/11/25 14:16 Blood Pressure 129/76 03/11/25 14:16 Pulse Oximetry 98 03/11/25 14:16 Oxygen Delivery Room Air 03/11/25 14:16 MDM - URI/Sore Throat MDM Narrative Medical decision making narrative: Discharge instructions reviewed with patient, as well as provided in writing per nursing staff. The instructions also include specific and strict return/GO TO THE ER as well as f/u information. All questions have been answered, and the patient deny any further questions with discharge and discharge plan. Differential Diagnosis Differential diagnosis: Likely upper respiratory infection, croup, sinusitis, viral infection and bronchitis Medical Records Attestation: I reviewed the patient's medical records. Imaging Data Radiologist's impression: IMPRESSION: No focal infiltrate or effusion. Reviewed, dictated and finalized at location A. Discharge Plan Discharge Clinical Impression: Bronchitis Patient Disposition: Home Condition: Stable Instructions: Antibiotic Form, Acute Bronchitis (ED), Bronchospasm (ED) Additional Instructions: Return to urgent care or go to the ER for new or worsening symptoms. Continue to take Tylenol or Motrin for pain. Use a humidifier or vaporizer at night. Take Medications as prescribed. Drink plenty of water. 8-10 glasses per day. Use flonase 2 times per day for 5 days then as needed Take mucinex 2 times per day and be sure to take with 8oz of water. Follow up with Primary provider if not getting better. Return to Express Care or go to the ER for new or worsening symptoms. Take the full dose of steroids as directed to decrease inflammation and open up sinus and airway Increase water intake to 8-10 glasses per day May use the albuterol inhaler as needed for shortness of breath, increased coughing Patient Language: Urdu Prescriptions: New benzonatate 200 mg capsule 200 mg PO TID PRN (Reason: cough) Qty: 30 0RF methylprednisolone [Medrol (Dawit)] 4 mg tablets,dose pack See Rx Instructions .ROUTE .COMPLEX Qty: 21 0RF Rx Instructions: for 6 days albuterol sulfate [Ventolin HFA] 90 mcg/actuation HFA aerosol inhaler 2 puff inhalation QID PRN (Reason: shortness of breath or wheezing) Qty: 8.5 0RF No Action glucosamine-chondroitin [Osteo Bi-Flex] 250-200 mg tablet 2 tablet PO TID Rx Instructions: give after food/meal magnesium gluconate 30 mg (550 mg) tablet 30 mg PO DAILY trazodone 100 mg tablet 100 mg PO QHS Qty: 30 5RF furosemide 20 mg tablet 20 mg PO DAILY PRN (Reason: edema) Qty: 90 3RF omega 0-mft-mjw-fish oil [Fish Oil] 1,000 mg (120 mg-180 mg) Capsule 1 cap PO DAILY Adults Multivitamin 18 mg iron-400 mcg-25 mcg Tablet 1 tablet PO DAILY nortriptyline 25 mg capsule 25 mg PO QHS Qty: 90 3RF bupropion HCl 150 mg tablet extended release 24 hr 150 mg PO QAM Qty: 90 3RF digoxin 125 mcg (0.125 mg) tablet 0.375 mg PO DAILY Qty: 270 2RF atorvastatin 20 mg tablet 20 mg PO DAILY Qty: 90 2RF Linzess 145 mcg capsule 145 mcg PO DAILY Qty: 30 7RF levothyroxine 100 mcg tablet See Rx Instructions .ROUTE .COMPLEX Qty: 90 3RF Dose Instruction: Take 1 tablet by mouth once daily Rx Instructions: Take 1 tablet by mouth once daily metformin 500 mg tablet extended release 24 hr See Rx Instructions .ROUTE .COMPLEX Qty: 90 2RF Dose Instruction: Take 1 tablet by mouth once daily Rx Instructions: Take 1 tablet by mouth once daily pantoprazole 40 mg tablet,delayed release (DR/EC) 40 mg PO DAILY Qty: 90 2RF Follow-up/Referrals: Royal Kumar MD [Primary Care Provider] - Time of Disposition: 15:03
== END 2025-03-11 15:07 | disposition home or self-care (01) ==
PROVIDERS: Emergency Provider Nurse Practitioner Family; PCP Family Medicine Adolescent Medicine
DX: J40 Bronchitis, not specified as acute or chronic (principal); Z87.891 Personal history of nicotine dependence; I49.9 Cardiac arrhythmia, unspecified; E11.9 Type 2 diabetes mellitus without complications; Z79.84 Long term (current) use of oral hypoglycemic drugs; E03.9 Hypothyroidism, unspecified; E78.5 Hyperlipidemia, unspecified
CPT/HCPCS: 71046; 99213; G0463